=== PATIENT | female | born 1945 | race Caucasian/White ===

== ENCOUNTER → 2020-08-05 13:00 | Outpatient (BNVA) | payer MEDICARE, OTHER, SELFPAY | PROVIDERS: PCP Internal Medicine; Referring Provider Internal Medicine; Visit Provider Student in an Organized Health Care Education/Training Program | DX: M06.00 Rheumatoid arthritis without rheumatoid factor, unspecified site (principal); M17.0 Bilateral primary osteoarthritis of knee; D75.89 Other specified diseases of blood and blood-forming organs; Z79.52 Long term (current) use of systemic steroids; Z79.899 Other long term (current) drug therapy | CPT/HCPCS: 20610; 99212 ==

== ENCOUNTER 2020-12-14 15:15 | Outpatient (REF) | payer MEDICARE, OTHER, SELFPAY ==
[2020-12-14 16:34] LABS: MANUAL DIFF FLAG NO
[2020-12-14 16:37] LABS: Basophils Absolute Auto 0.1 X10*3/uL (0.0-0.2); Basophils Percent Auto 0.8 % (0-2); Eosinophils Absolute Auto 0.1 X10*3/uL (0.0-0.4); Hematocrit 41.5 % (37-47); Hemoglobin 13.7 g/dl (12.0-16.0); Imm Gran Abs Auto 0.03 X10*3/uL (0.00-0.03); Imm Gran Pct Auto 0.3 % (0.0-0.4); Lymphocytes Absolute Auto 1.5 X10*3/uL (1.2-4.9); Lymphocytes Percent Auto 15.4 % (20-40); Mean Corpuscular Hemoglobin 34.9 pg (27.0-33.0); Mean Corpuscular Volume 105.6 fL (80-98); Mean Platelet Volume 10.4 fL (9.4-12.3); Monocytes Absolute Auto 0.8 X10*3/uL (0.1-1.2); Neutrophils Absolute Auto 7.1 X10*3/uL (2.0-8.3); Neutrophils Percent Auto 74.5 % (45-73); Platelet Count 220 X10*3/uL (160-400); Red Blood Count 3.93 X10*6/uL (4.20-5.50); Red Cell Distribution Width 12.4 % (11.0-16.0); White Blood Count 9.6 X10*3/uL (4.8-10.8)
[2020-12-14 17:24] LABS: Alanine Aminotransferase 32 U/L (0-31); Alkaline Phosphatase 77 U/L (39-117); Anion Gap 15 (12-20); Aspartate Amino Transferase 27 U/L (5-31); Bilirubin Total 0.4 mg/dL (0.0-1.0); Blood Urea Nitrogen 21 mg/dL (9-16); C Reactive Protein 0.32 mg/dL (< or = 0.50); Calcium 9.2 mg/dL (8.4-10.2); Carbon Dioxide 25 mmol/L (22-29); Chloride 104 mmol/L (96-108); Estimated Glomerular Filt Rate > 60; Glucose Random 83 mg/dL (60-115); Potassium 4.3 mmol/L (3.3-5.1); Sodium 140 mmol/L (135-145); Total Protein 6.4 g/dL (6.5-8.0)
[2020-12-14 17:36] LABS: Erythrocyte Sedimentation Rate 12 MM/HR (0-20)
== END 2020-12-14 15:16 | disposition home or self-care (01) ==
LOC: HO.LAB 15:15
PROVIDERS: PCP Internal Medicine; Referring Provider Internal Medicine; Visit Provider Student in an Organized Health Care Education/Training Program
DX: M06.00 Rheumatoid arthritis without rheumatoid factor, unspecified site (principal); D75.89 Other specified diseases of blood and blood-forming organs; M17.0 Bilateral primary osteoarthritis of knee; Z79.52 Long term (current) use of systemic steroids; Z79.899 Other long term (current) drug therapy
CPT/HCPCS: 36415; 80053; 85025; 85652; 86140; 99212

== ENCOUNTER → 2021-04-18 14:11 | Outpatient (BNVA) | payer MEDICARE, OTHER, SELFPAY | PROVIDERS: PCP Internal Medicine; Visit Provider Student in an Organized Health Care Education/Training Program | DX: M06.00 Rheumatoid arthritis without rheumatoid factor, unspecified site (principal); M17.0 Bilateral primary osteoarthritis of knee; D75.89 Other specified diseases of blood and blood-forming organs; Z79.899 Other long term (current) drug therapy | CPT/HCPCS: 20610; 99212 ==

== ENCOUNTER 2021-04-20 09:44 | Outpatient (REF) | payer MEDICARE, OTHER, SELFPAY ==
[2021-04-20 10:51] LABS: MANUAL DIFF FLAG NO
[2021-04-20 11:07] LABS: Basophils Percent Auto 0.4 % (0-2); Eosinophils Percent Auto 0.1 % (0-4); Hematocrit 39.9 % (37-47); Hemoglobin 13.1 g/dl (12.0-16.0); Imm Gran Abs Auto 0.05 X10*3/uL (0.00-0.03); Imm Gran Pct Auto 0.5 % (0.0-0.4); Lymphocytes Absolute Auto 0.8 X10*3/uL (1.2-4.9); Mean Corpuscular HGB Conc 32.8 g/dl (31.0-35.0); Mean Corpuscular Hemoglobin 34.7 pg (27.0-33.0); Mean Corpuscular Volume 105.8 fL (80-98); Mean Platelet Volume 10.3 fL (9.4-12.3); Monocytes Absolute Auto 0.7 X10*3/uL (0.1-1.2); Monocytes Percent Auto 7.6 % (2-11); Neutrophils Absolute Auto 7.9 X10*3/uL (2.0-8.3); Neutrophils Percent Auto 83.4 % (45-73); Platelet Count 247 X10*3/uL (160-400); Red Blood Count 3.77 X10*6/uL (4.20-5.50); Red Cell Distribution Width 13.4 % (11.0-16.0); White Blood Count 9.5 X10*3/uL (4.8-10.8)
[2021-04-20 11:30] LABS: Alanine Aminotransferase 33 U/L (0-31); Albumin Level 3.7 g/dL (3.5-5.0); Alkaline Phosphatase 66 U/L (39-117); Anion Gap 13 (12-20); Aspartate Amino Transferase 22 U/L (5-31); Bilirubin Total 0.4 mg/dL (0.0-1.0); Blood Urea Nitrogen 23 mg/dL (9-16); C Reactive Protein 0.09 mg/dL (< or = 0.50); Calcium 9.3 mg/dL (8.4-10.2); Carbon Dioxide 25 mmol/L (22-29); Chloride 107 mmol/L (96-108); Estimated Glomerular Filt Rate > 60; Glucose Random 86 mg/dL (60-115); Potassium 4.8 mmol/L (3.3-5.1); Sodium 140 mmol/L (135-145); Total Protein 6.1 g/dL (6.5-8.0)
[2021-04-20 12:13] LABS: Erythrocyte Sedimentation Rate 10 MM/HR (0-20)
== END 2021-04-20 09:45 | disposition home or self-care (01) ==
LOC: HO.LAB 09:44
PROVIDERS: PCP Internal Medicine; Visit Provider Student in an Organized Health Care Education/Training Program
DX: M06.00 Rheumatoid arthritis without rheumatoid factor, unspecified site (principal)
CPT/HCPCS: 36415; 80053; 85025; 85652; 86140

== ENCOUNTER 2021-08-07 12:22 | Outpatient (REF) | payer MEDICARE, OTHER, SELFPAY ==
[2021-08-07 12:49] LABS: MANUAL DIFF FLAG NO
[2021-08-07 13:24] LABS: Basophils Absolute Auto 0.1 X10*3/uL (0.0-0.2); Basophils Percent Auto 0.9 % (0-2); Eosinophils Absolute Auto 0.1 X10*3/uL (0.0-0.4); Eosinophils Percent Auto 0.6 % (0-4); Hemoglobin 13.3 g/dl (12.0-16.0); Imm Gran Abs Auto 0.04 X10*3/uL (0.00-0.03); Imm Gran Pct Auto 0.5 % (0.0-0.4); Lymphocytes Absolute Auto 1.1 X10*3/uL (1.2-4.9); Lymphocytes Percent Auto 12.9 % (20-40); Mean Corpuscular HGB Conc 32.4 g/dl (31.0-35.0); Mean Corpuscular Hemoglobin 35.2 pg (27.0-33.0); Mean Corpuscular Volume 108.5 fL (80.0-98.0); Mean Platelet Volume 10.2 fL (9.4-12.3); Monocytes Absolute Auto 0.6 X10*3/uL (0.1-1.2); Monocytes Percent Auto 7.4 % (2-11); Neutrophils Absolute Auto 6.7 x10*3/uL (2.0-8.3); Neutrophils Percent Auto 77.7 % (45-73); Platelet Count 244 X10*3/uL (160-400); Red Blood Count 3.78 X10*6/uL (4.20-5.50); Red Cell Distribution Width 12.9 % (11.0-16.0); White Blood Count 8.7 X10*3/uL (4.8-10.8)
[2021-08-07 13:47] LABS: Alanine Aminotransferase 34 U/L (0-31); Albumin Level 3.8 g/dL (3.5-5.0); Alkaline Phosphatase 68 U/L (39-117); Anion Gap 11 (12-20); Aspartate Amino Transferase 27 U/L (5-31); Bilirubin Total 0.3 mg/dL (0.0-1.0); Blood Urea Nitrogen 22 mg/dL (9-16); C Reactive Protein 0.13 mg/dL (< or = 0.50); Calcium 9.9 mg/dL (8.4-10.2); Carbon Dioxide 30 mmol/L (22-29); Chloride 106 mmol/L (96-108); Estimated Glomerular Filt Rate > 60; Glucose Random 95 mg/dL (60-115); Potassium 4.9 mmol/L (3.3-5.1); Sodium 142 mmol/L (135-145); Total Protein 6.2 g/dL (6.5-8.0)
[2021-08-07 14:28] LABS: Erythrocyte Sedimentation Rate 13 MM/HR (0-20)
== END 2021-08-07 12:23 | disposition home or self-care (01) ==
LOC: HO.LAB 12:22
PROVIDERS: PCP Internal Medicine; Visit Provider Nurse Practitioner Family
DX: M06.00 Rheumatoid arthritis without rheumatoid factor, unspecified site (principal)
CPT/HCPCS: 36415; 80053; 85025; 85652; 86140

== ENCOUNTER 2021-08-31 12:47 | Outpatient (REF) | payer MEDICARE, OTHER, SELFPAY ==
[2021-08-31 13:59] LABS: MANUAL DIFF FLAG NO
[2021-08-31 14:04] LABS: Basophils Absolute Auto 0.1 X10*3/uL (0.0-0.2); Basophils Percent Auto 1.1 % (0-2); Eosinophils Absolute Auto 0.1 X10*3/uL (0.0-0.4); Hematocrit 40.7 % (37.0-47.0); Hemoglobin 13.4 g/dl (12.0-16.0); Imm Gran Abs Auto 0.03 X10*3/uL (0.00-0.03); Imm Gran Pct Auto 0.4 % (0.0-0.4); Lymphocytes Absolute Auto 1.3 X10*3/uL (1.2-4.9); Lymphocytes Percent Auto 15.4 % (20-40); Mean Corpuscular HGB Conc 32.9 g/dl (31.0-35.0); Mean Corpuscular Hemoglobin 35.2 pg (27.0-33.0); Mean Corpuscular Volume 106.8 fL (80.0-98.0); Mean Platelet Volume 10.4 fL (9.4-12.3); Monocytes Absolute Auto 0.7 X10*3/uL (0.1-1.2); Monocytes Percent Auto 7.9 % (2-11); Neutrophils Absolute Auto 6.1 x10*3/uL (2.0-8.3); Neutrophils Percent Auto 74.2 % (45-73); Platelet Count 227 X10*3/uL (160-400); Red Blood Count 3.81 X10*6/uL (4.20-5.50); Red Cell Distribution Width 12.4 % (11.0-16.0); White Blood Count 8.3 X10*3/uL (4.8-10.8)
[2021-08-31 14:28] LABS: Alanine Aminotransferase 23 U/L (0-31); Albumin Level 3.7 g/dL (3.5-5.0); Alkaline Phosphatase 66 U/L (39-117); Anion Gap 11 (12-20); Aspartate Amino Transferase 25 U/L (5-31); Bilirubin Total 0.4 mg/dL (0.0-1.0); Blood Urea Nitrogen 26 mg/dL (9-16); C Reactive Protein 0.26 mg/dL (< or = 0.50); Calcium 9.4 mg/dL (8.4-10.2); Carbon Dioxide 29 mmol/L (22-29); Chloride 105 mmol/L (96-108); Estimated Glomerular Filt Rate > 60; Glucose Random 99 mg/dL (60-115); Potassium 4.5 mmol/L (3.3-5.1); Sodium 140 mmol/L (135-145)
[2021-08-31 15:00] LABS: Erythrocyte Sedimentation Rate 16 MM/HR (0-20)
== END 2021-08-31 12:48 | disposition home or self-care (01) ==
LOC: HO.WFDLDS 12:47
PROVIDERS: Visit Provider Nurse Practitioner Family
DX: M06.00 Rheumatoid arthritis without rheumatoid factor, unspecified site (principal)
CPT/HCPCS: 36415; 80053; 85025; 85652; 86140

== ENCOUNTER → 2021-09-01 10:29 | Outpatient (BNVA) | payer MEDICARE, OTHER, SELFPAY | PROVIDERS: PCP Internal Medicine; Visit Provider Nurse Practitioner Family | DX: M06.00 Rheumatoid arthritis without rheumatoid factor, unspecified site (principal); D75.89 Other specified diseases of blood and blood-forming organs; Z79.82 Long term (current) use of aspirin | CPT/HCPCS: 99212 ==

== ENCOUNTER 2023-05-09 13:29 | Outpatient (AMB) | payer MEDICARE, OTHER, SELFPAY ==
[2023-05-09 13:45] VITALS: BP 122/64; PULSE 72; O2SAT 97; BMI 25.6
--- NOTE | 2023-05-09 13:45 | MHC.OFFVIS ---
Intake Vital Signs 05/09/23 13:45 Height 5 ft 4.5 in Weight 151 lb 10.848 oz BMI 25.6 BP 122/64 Blood Pressure Location Rt brachial Position Sitting Pulse 72 Pulse Source Pulse Oximeter Pulse Oximetry (%) 97 Intake Visit Reasons: RA Intake Note: Pt seen today for RA follow up. Previously seen [facility] Dr Sal she states they told her she does not have RA and discontinued MTX; follows with [facility] for knee OA. 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 She was last seen by Estrellita Velázquez 09/05. She was then followed by Dr. Mendoza at the [facility]. Methotrexate was discontinued and hydroxychloroquine was continued. Patient also mentions that she would get prednisone tapers. She also has been following up with due in and Orthopedics for her bilateral knee osteoarthritis. She gets steroid injections every 3 months and gel injections every 6 months. She states that over the last few months she has been having worsening pain and stiffness in her fingers, morning stiffness lasting 1 hour. Associated with swelling of her 2nd and 3rd MCPs bilaterally. She states that she has had a reddish patch on the left side of her neck that seems to get worse when her arthritis is worse. [facility] Medical History (Updated 05/09/23 @ 15:59 by Amy Gómez MD) Calcium pyrophosphate deposition disease (CPPD) Macrocytosis Primary osteoarthritis of left knee Primary osteoarthritis of right knee Surgical History History of heart artery stent Social History Alcohol intake: never Patient Tobacco Use Status: Former Tobacco user Review of Systems ENT Reports neck pain Musc Reports arthralgias, Reports joint swelling, Reports neck pain and Reports stiffness Physical Exam Vital Signs: Last Vital Signs Pulse 72 05/09/23 13:45 BP 122/64 05/09/23 13:45 Pulse Ox 97 05/09/23 13:45 BMI result Body Mass Index 25.6 Const General: cooperative, healthy appearing and comfortable Nutritional Appearance: average body habitus Orientation/consciousness: patient oriented x3 Limitations: ambulation with cane HEENT Head: Yes normocephalic and Yes atraumatic Mouth: moist mucous membranes Resp Effort & Inspection: normal respiratory effort and able to speak in complete sentences Auscultation: clear to auscultation bilaterally Cardio Rate: regular rate Skin General skin exam: no rashes or lesions noted Neuro General: patient oriented x3 Extrem Other: Bilateral wrist pain with full flexion Left 2nd and 3rd MCP swelling and tenderness Left 2nd and 3rd PIP swelling and tenderness Right 2nd and 3rd MCP swelling and tenderness Right 2nd and 3rd PIP swelling and tenderness Mild flexion deformity of right hand PIP, with mild extension of the DIPs. Normal range of motion of both elbows and shoulders without pain Bilateral knee warmth Assessment & Plan Assessment & Plan (1) Seropositive rheumatoid arthritis: Comment: +CCP (-ve on repeat) -ve RF dx 2016 on MTX & HCQ since 2015 MTX DC 2021 Code(s): M05.9 - Rheumatoid arthritis with rheumatoid factor, unspecified Plan: This is a 77-year-old female with a past medical history of rheumatoid arthritis who presents for follow-up. She was last seen by Estrellita Velázquez 09/05 and then was following up with Dr. Sal at the [facility]. She was taken off the methotrexate. Over the last few months patient has been having worsening pain stiffness and swelling of her hands and fingers associated with 1 hour of morning stiffness. She had been on methotrexate since her diagnosis in 2015 as well as hydroxychloroquine. On exam today patient has multiple swollen tender joints, will need to restart methotrexate. Check labs 1st and will plan to start methotrexate 17.5 mg weekly and folic acid 1 mg daily. 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 Will check a bone density scan (3) custodial methotrexate user: Code(s): Z79.899 - Other [place] [facility] (current) drug therapy Plan: Side effects of methotrexate were discussed with the patient in detail including oral ulcers, elevated LFTs, abdominal discomfort, and possible pancytopenia is. Will monitor patient for side effects with frequent lab work. Advised patient to take folic acid daily to prevent complications of methotrexate. (4) Abnormal ANCA test: Code(s): R76.8 - Other specified abnormal immunological findings in serum Plan: Labs from 05/03 she show a positive p-ANCA with no mention of MPO positivity. Labs also showed positive ASMA & RJA 1:320 homogeneous. I do not see any signs of vasculitis upon evaluation today, recent LFTs were unremarkable. Will repeat ANCA testing in the future Plan I spent 65 minutes reviewing patient's chart, evaluating patient, ordering diagnostic workup, counseling patient and documenting in the chart Orders: Orders Complete Blood Count Auto Diff Today M06.00 - Rheumatoid arthritis without rheumatoid factor, unspecified site Comprehensive Met. Panel Today M06.00 - Rheumatoid arthritis without rheumatoid factor, unspecified site C Reactive Protein Today M06.00 - Rheumatoid arthritis without rheumatoid factor, unspecified site Erythrocyte Sedimentation Rate Today M06.00 - Rheumatoid arthritis without rheumatoid factor, unspecified site Hepatitis A,B,C Profile Today Z11.59 - Encounter for screening for other viral diseases T Spot TB Today Z11.7 - Encounter for testing for latent tuberculosis infection XR hand wrist LT Today M06.00 - Rheumatoid arthritis without rheumatoid factor, unspecified site XR hand wrist RT Today M06.00 - Rheumatoid arthritis without rheumatoid factor, unspecified site XR DEXA axial skeleton Today Z79.52 - custodial (current) use of systemic steroids Coding Level of Care Code Est Pt Level 5 (21113) Diagnoses Seropositive rheumatoid arthritis M05.9 Long-term corticosteroid use Z79.52 custodial methotrexate user Z79.899 Abnormal ANCA test R76.8
== END 2023-05-09 14:23 | disposition home or self-care (01) ==
PROVIDERS: PCP Internal Medicine; Visit Provider Student in an Organized Health Care Education/Training Program
DX: M05.741 Rheumatoid arthritis with rheumatoid factor of right hand without organ or systems involvement (principal); M05.742 Rheumatoid arthritis with rheumatoid factor of left hand without organ or systems involvement; Z79.52 Long term (current) use of systemic steroids; Z79.899 Other long term (current) drug therapy; R76.8 Other specified abnormal immunological findings in serum
CPT/HCPCS: 99215

== ENCOUNTER 2023-05-09 13:29 | Outpatient (REF) | payer MEDICARE, OTHER, SELFPAY ==
--- NOTE | ~2023-05-09 | XR_ITS ---
EXAMINATION: XR HAND/WRIST, RIGHT XR HAND/WRIST, LEFT CLINICAL INFORMATION: Rheumatoid arthritis. COMPARISON: None available. TECHNIQUE: PA, lateral, and oblique views of the each hand and wrist, together with a dedicated navicular views. FINDINGS: RIGHT HAND/WRIST: There is bony demineralization. There is a neutral ulnar variance. There is mild osteoarthritic change of the interphalangeal joint of the thumb and of the fifth distal interphalangeal joint. There is mild osteoarthritic change of the second metacarpophalangeal joint. No fracture or dislocation is seen. There is no abnormal bone erosion. No focal soft tissue swelling, gas or foreign body is seen. LEFT HAND/WRIST: Bony alignment is normal. There is bony demineralization. No fracture. Alignment is anatomic. There is a mild ulnar minus variance. Joint spaces are maintained. A small periarticular calcification is seen adjacent to the interphalangeal joint of the thumb. No erosions. There is very mild chondrocalcinosis of the triangular ligament. XR/XR hand wrist LT IMPRESSION: RIGHT: 1. Mild osteoarthritic change is seen of the interphalangeal joint and of the fifth distal interphalangeal joint. 2. There is no abnormal bone erosion. LEFT: 1. No fracture or dislocation is seen. 2. There is very mild chondrocalcinosis of the triangular ligament, which can be associated with CPPD. 3. There is no abnormal bone erosion.
--- NOTE | ~2023-05-09 | XR_ITS ---
EXAMINATION: XR HAND/WRIST, RIGHT XR HAND/WRIST, LEFT CLINICAL INFORMATION: Rheumatoid arthritis. COMPARISON: None available. TECHNIQUE: PA, lateral, and oblique views of the each hand and wrist, together with a dedicated navicular views. FINDINGS: RIGHT HAND/WRIST: There is bony demineralization. There is a neutral ulnar variance. There is mild osteoarthritic change of the interphalangeal joint of the thumb and of the fifth distal interphalangeal joint. There is mild osteoarthritic change of the second metacarpophalangeal joint. No fracture or dislocation is seen. There is no abnormal bone erosion. No focal soft tissue swelling, gas or foreign body is seen. LEFT HAND/WRIST: Bony alignment is normal. There is bony demineralization. No fracture. Alignment is anatomic. There is a mild ulnar minus variance. Joint spaces are maintained. A small periarticular calcification is seen adjacent to the interphalangeal joint of the thumb. No erosions. There is very mild chondrocalcinosis of the triangular ligament. XR/XR hand wrist RT IMPRESSION: RIGHT: 1. Mild osteoarthritic change is seen of the interphalangeal joint and of the fifth distal interphalangeal joint. 2. There is no abnormal bone erosion. LEFT: 1. No fracture or dislocation is seen. 2. There is very mild chondrocalcinosis of the triangular ligament, which can be associated with CPPD. 3. There is no abnormal bone erosion.
[2023-05-09 14:51] LABS: MANUAL DIFF FLAG NO
[2023-05-09 15:37] LABS: Basophils Absolute Auto 0.1 X10*3/uL (0.0-0.2); Basophils Percent Auto 1.2 % (0-2); Eosinophils Absolute Auto 0.3 X10*3/uL (0.0-0.4); Eosinophils Percent Auto 3.9 % (0-4); Hematocrit 43.7 % (37.0-47.0); Hemoglobin 14.2 g/dl (12.0-16.0); Imm Gran Abs Auto 0.02 X10*3/uL (0.00-0.03); Imm Gran Pct Auto 0.2 % (0.0-0.4); Lymphocytes Absolute Auto 1.5 X10*3/uL (1.2-4.9); Lymphocytes Percent Auto 18.2 % (20-40); Mean Corpuscular HGB Conc 32.5 g/dl (31.0-35.0); Mean Corpuscular Hemoglobin 32.9 pg (27.0-33.0); Mean Corpuscular Volume 101.4 fL (80.0-98.0); Mean Platelet Volume 10.1 fL (9.4-12.3); Monocytes Absolute Auto 0.9 X10*3/uL (0.1-1.2); Monocytes Percent Auto 10.8 % (2-11); Neutrophils Absolute Auto 5.4 x10*3/uL (2.0-8.3); Neutrophils Percent Auto 65.7 % (45-73); Platelet Count 265 X10*3/uL (160-400); Red Blood Count 4.31 X10*6/uL (4.20-5.50); Red Cell Distribution Width 12.7 % (11.0-16.0); White Blood Count 8.3 X10*3/uL (4.8-10.8)
[2023-05-09 16:19] LABS: Alanine Aminotransferase 23 U/L (0-31); Alkaline Phosphatase 112 U/L (39-117); Anion Gap 13 (12-20); Aspartate Amino Transferase 30 U/L (5-31); Bilirubin Total 0.4 mg/dL (0.0-1.0); Blood Urea Nitrogen 21 mg/dL (9-16); Calcium 10.1 mg/dL (8.4-10.2); Carbon Dioxide 27 mmol/L (22-29); Chloride 105 mmol/L (96-108); Estimated Glomerular Filt Rate > 60; Glucose Random 87 mg/dL (60-115); Potassium 4.3 mmol/L (3.3-5.1); Sodium 141 mmol/L (135-145); Total Protein 7.2 g/dL (6.5-8.0)
[2023-05-09 16:44] LABS: Erythrocyte Sedimentation Rate 23 MM/HR (0-20)
[2023-05-10 04:05] LABS: HBS Num1 5.39 mIU/mL (0-7.99); HBc Num1 0.07 S/CO (0.00-0.79); HBsAGNum1 0.38 S/CO (0.00-0.99); Hepatitis A Antibody IgM 0.15 Index (0-0.79); Hepatitis B Core Antibody Nonreactive (Nonreactive); Hepatitis B Surface Antigen Negative (Negative); ~HepC Num1 0.06 S/CO (0.00-0.79); ~Hepatitis A Antibody IgM Nonreactive (Nonreactive); ~Hepatitis B Surface Antibody NONREACTIVE (Nonreactive); ~Hepatitis C Antibody Nonreactive (Nonreactive)
[2023-05-12 05:04] LABS: TS Negative Control Passed; TS Panel A 0; TS Panel B 0; TS Positive Control Passed; TSpotTB Negative (Negative)
== END 2023-05-09 13:30 | disposition home or self-care (01) ==
LOC: HO.XRAY 13:29
PROVIDERS: PCP Internal Medicine; Visit Provider Student in an Organized Health Care Education/Training Program
DX: M05.9 Rheumatoid arthritis with rheumatoid factor, unspecified (principal); Z79.52 Long term (current) use of systemic steroids; Z79.899 Other long term (current) drug therapy; R76.8 Other specified abnormal immunological findings in serum; Z11.59 Encounter for screening for other viral diseases; Z72.89 Other problems related to lifestyle
CPT/HCPCS: 36415; 73110; 73130; 80053; 85025; 85652; 86140; 86481; 86704; 86706; 86709; 86803; 87340; 99212

== ENCOUNTER 2023-05-15 14:14 | Outpatient (REF) | payer MEDICARE, OTHER, SELFPAY ==
--- NOTE | ~2023-05-15 | MM_ITS ---
EXAMINATION: BONE DENSITOMETRY CLINICAL INDICATION: Long-term (current) use of systemic steroids. COMPARISON: This is the patient's baseline examination. TECHNIQUE: Using a Digital Lab DXA System (software version: 13.1) manufactured by [employer], dual-energy x-ray absorptiometry was performed of the lumbar spine and left hip. The images are of good technical quality. Summary results are attached. FINDINGS: LEFT FEMUR, NECK: BMD 0.830 g/cm2, Z-score 0.4, T-score -1.5, osteopenia. LEFT FEMUR, TOTAL: BMD 0.903 g/cm2, Z-score 0.9, T-score -0.8, normal. AP SPINE L1-L4: BMD 1.051 g/cm2, Z-score 0.6, T-score -1.1, osteopenia. IDENTIFIED RISK FACTORS: Menopause, hysterectomy, glucocorticoids (chronic), rheumatoid arthritis. HISTORY OF FRACTURE: None listed. MEDICATIONS: Vitamin D. MM/XR DEXA axial skeleton IMPRESSION: 1. DIAGNOSIS: Osteopenia based on the lowest T-score value of -1.5 in the femoral neck applying World Health Organization criteria. 2. 10-YEAR FRACTURE RISK PREDICTION, FRAX: Major osteoporotic fracture (clinical spine, forearm, hip or shoulder) 23.0%. Hip fracture 6.0%. 3. Treatment Recommendations: NOF guidelines recommend consideration for treatment in postmenopausal women and men age 50 and older presenting with the following: -A hip or vertebral (clinical or morphometric) fracture. -T-score less than or equal to -2.5 at the femoral neck or spine after appropriate evaluation to exclude secondary causes. -Low bone mass at the hip or spine and a 10-year fracture probability by FRAX of greater than or equal to 3% for hip fracture or greater than or equal to 20% for major osteoporotic fracture based on the [place] adapted WHO algorithm. 4. Other Recommendations: All treatment decisions require clinical judgment and consideration of individual patient factors, including patient preferences, comorbidities, previous drug use, risk factors not captured in the FRAX model (e.g. frailty, falls, vitamin D deficiency, increased bone turnover, interval significant decline in bone density) and possible under or overestimation of fracture risk by FRAX. Additional medical evaluation for secondary cause of low bone mineral density may be appropriate. FUTURE SCAN RECOMMENDATION: People with diagnosed cases of osteoporosis or at high risk for fracture should have regular bone mineral density tests. For patients eligible for Medicare, routine testing is allowed once every 2 years. The testing frequency can be increased to one year for patients who have rapidly progressing disease, those who are receiving or discontinuing medical therapy to restore bone mass, or have additional risk factors.
== END 2023-05-15 14:15 | disposition home or self-care (01) ==
LOC: HO.MAMMO 14:14
PROVIDERS: PCP Internal Medicine; Visit Provider Student in an Organized Health Care Education/Training Program
DX: Z13.820 Encounter for screening for osteoporosis (principal); Z79.52 Long term (current) use of systemic steroids; Z78.0 Asymptomatic menopausal state
CPT/HCPCS: 77080

== ENCOUNTER → 2023-05-15 14:30 | Outpatient (BNV) | payer MEDICARE, OTHER, SELFPAY | PROVIDERS: PCP Internal Medicine; Visit Provider Radiology Diagnostic Radiology | DX: M85.89 Other specified disorders of bone density and structure, multiple sites (principal) | CPT/HCPCS: 77080 ==

== ENCOUNTER 2023-08-15 15:26 | Outpatient (AMB) | payer MEDICARE, OTHER, SELFPAY ==
[2023-08-15 15:39] VITALS: BP 108/62; PULSE 68; TEMP 36.2; O2SAT 98; BMI 25.7
--- NOTE | 2023-08-15 15:39 | MHC.OFFVIS ---
Intake Vital Signs 08/15/23 15:39 Height 5 ft 4.5 in Weight 151 lb 14.376 oz BMI 25.7 BP 108/62 Blood Pressure Location Rt brachial Position Sitting Pulse 68 Pulse Source Pulse Oximeter Temp 97.1 F Temp Source Skin Pulse Oximetry (%) 98 Oxygen Delivery Method Room Air Intake Visit Reasons: RA Intake Note: Pt last seen 05/09/23, presents today for follow up and test results. 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 Required: No Accompanied by: Self / Same As Patient Allergies No Known Allergies Allergy (Verified 08/15/23 15:42) Medication List - Last Reconciled 08/15/23 by Amy Gómez MD aspirin (Adult Low Dose Aspirin) 81 mg PO DAILY atorvastatin 80 mg PO DAILY folic acid 1 mg PO DAILY furosemide 20 mg PO DAILY PRN hydroxychloroquine (Plaquenil) 200 mg PO BID levothyroxine 112 mcg PO DAILY losartan 12.5 mg PO DAILY methotrexate sodium 17.5 mg (7 x 2.5 mg) PO QWEEK metoprolol succinate ER 50 mg PO DAILY spironolactone 25 mg PO DAILY HPI HPI Comments History of Present Illness Details 77-year-old female with seropositive RA (+CCP)returns for follow-up. Doing much better overall since methotrexate was restarted last visit. She only has minimal hand pain and stiffness. She continues to have bilateral knee pain and deformity. Continues to get bilateral knee steroid injections every 3 months and gel injections every 6 months. She stated that she had an injection 3 days ago which was helpful. Mentions that she gets intermittent locking and unlocking of her fingers, usually worse in the morning. Not painful or significantly symptomatic. Initial history: This is a 77-year-old female with a past medical history of seronegative RA presents for follow-up. She was last seen by Estrellita Velázquez 09/05. She was then followed by Dr. Mendoza at the [facility]. Methotrexate was discontinued and hydroxychloroquine was continued. Patient also mentions that she would get prednisone tapers. She also has been following up with due in and Orthopedics for her bilateral knee osteoarthritis. She gets steroid injections every 3 months and gel injections every 6 months. She states that over the last few months she has been having worsening pain and stiffness in her fingers, morning stiffness lasting 1 hour. Associated with swelling of her 2nd and 3rd MCPs bilaterally. She states that she has had a reddish patch on the left side of her neck that seems to get worse when her arthritis is worse. [facility] Medical History Bladder cancer Calcium pyrophosphate deposition disease (CPPD) Primary osteoarthritis of left knee Primary osteoarthritis of right knee Macrocytosis Surgical History History of heart artery stent Social History Alcohol intake: never Patient Tobacco Use Status: Former Tobacco user Review of Systems [facility] Reports arthralgias and Reports stiffness Physical Exam Vital Signs: Last Vital Signs Temp 97.1 F 08/15/23 15:39 Pulse 68 08/15/23 15:39 BP 108/62 08/15/23 15:39 Pulse Ox 98 08/15/23 15:39 Oxygen Delivery Method Room Air 08/15/23 15:39 BMI result Body Mass Index 25.7 Const General: cooperative, healthy appearing and comfortable Nutritional Appearance: average body habitus Orientation/consciousness: patient oriented x3 Limitations: ambulation with cane HEENT Head: Yes normocephalic and Yes atraumatic Mouth: moist mucous membranes Resp Effort & Inspection: normal respiratory effort and able to speak in complete sentences Auscultation: clear to auscultation bilaterally Cardio Rate: regular rate Skin General skin exam: no rashes or lesions noted Neuro General: patient oriented x3 Extrem Other: Bilateral wrist pain with full flexion Left 2nd and 3rd PIP tenderness without swelling Right 2nd PIP tenderness Mild flexion deformity of right hand PIP, with mild extension of the DIPs. Normal range of motion of both elbows and shoulders without pain Left knee warmth, bilateral genu valgus Results Reviewed Results Reviewed: Labs 10/2021? CCP/RF negative Hepatitis panel negative QuantiFERON gold negative ESR 11? CRP normal Labs 2015 CCP 34 (weak positive) RAJ 1-320 homogeneous? ASMA? 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 DEXA scan shows osteopenia but with a high FRAX score. Will need to start antiresorptives. Discussed risks and benefits of alendronate. Patient agreed to proceed. Will start alendronate 70 mg once weekly Repeat DEXA in 2024 (3) nursing home methotrexate user: Code(s): Z79.899 - Other assisted (current) drug therapy Plan: Monitor safety lab (4) Abnormal ANCA test: Code(s): R76.8 - Other specified abnormal immunological findings in serum Plan: Labs from 05/03 she show a positive p-ANCA with no mention of MPO positivity. Labs also showed positive ASMA & RAJ 1:320 homogeneous. I do not see any signs of vasculitis upon evaluation today, recent LFTs were unremarkable. Will repeat testing today (5) Immunization counseling: Code(s): Z71.85 - Encounter for immunization safety counseling Plan: Patient is up-to-date on flu vaccine and new COVID booster (6) Long-term use of hydroxychloroquine: Code(s): Z79.899 - Other manager long term care (current) drug therapy Plan: Patient is aware of risk of retinopathy associated with hydroxychloroquine. She gets regular eye exams. She states that she is due for an eye exam. 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 Panel 3 Months Z79.899 - Other assisted (current) drug therapy Erythrocyte Sedimentation Rate 3 Months Z79.899 - Other assisted (current) drug therapy Complete Blood Count Auto Diff Today M05.9 - Rheumatoid arthritis with rheumatoid factor, unspecified, Z79.899 - Other assisted (current) drug therapy Comprehensive Met. Panel Today M05.9 - Rheumatoid arthritis with rheumatoid factor, unspecified, Z79.899 - Other manager long term care (current) drug therapy C Reactive Protein Today M05.9 - Rheumatoid arthritis with rheumatoid factor, unspecified, Z79.899 - Other assisted (current) drug therapy ANCA Vasculitides Today R76.8 - Other specified abnormal immunological findings in serum Smooth Muscle Antibody Today R74.01 - Elevation of levels of liver transaminase levels C Reactive Protein 3 Months Z79.899 - Other assisted (current) drug therapy Erythrocyte Sedimentation Rate Today M05.9 - Rheumatoid arthritis with rheumatoid factor, unspecified, Z79.899 - Other manager long term care (current) drug therapy Medications: New alendronate 70 mg PO QWEEK 12 tabs 1RF alendronate Take 1 tab once weekly, 1st thing in the morning, on an empty stomach, with a large glass of water, at least 6 oz and stay upright for 30 minutes 70 mg PO QWEEK 12 tabs 1RF Refilled methotrexate sodium 17.5 mg (7 x 2.5 mg) PO QWEEK 84 tabs 1RF folic acid 1 mg PO DAILY 90 tabs 1RF Coding Level of Care Code Est Pt Level 5 (12065) Diagnoses Seropositive rheumatoid arthritis M05.9 Long-term corticosteroid use Z79.52 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
== END 2023-08-15 16:10 | disposition home or self-care (01) ==
PROVIDERS: PCP Internal Medicine; Visit Provider Student in an Organized Health Care Education/Training Program
DX: M05.79 Rheumatoid arthritis with rheumatoid factor of multiple sites without organ or systems involvement (principal); Z79.52 Long term (current) use of systemic steroids; Z79.899 Other long term (current) drug therapy; R76.8 Other specified abnormal immunological findings in serum; Z71.85 Encounter for immunization safety counseling
CPT/HCPCS: 99215

== ENCOUNTER → 2023-08-15 15:26 | Outpatient (BNVA) | payer MEDICARE, OTHER, SELFPAY | PROVIDERS: PCP Internal Medicine; Visit Provider Student in an Organized Health Care Education/Training Program | DX: M05.9 Rheumatoid arthritis with rheumatoid factor, unspecified (principal); R76.8 Other specified abnormal immunological findings in serum; Z79.52 Long term (current) use of systemic steroids; Z79.899 Other long term (current) drug therapy; Z71.85 Encounter for immunization safety counseling | CPT/HCPCS: 99212 ==

== ENCOUNTER 2023-12-16 09:20 | Outpatient (AMB) | payer MEDICARE, OTHER, SELFPAY ==
--- NOTE | 2023-12-16 09:25 | A.OFFVIS_ITS ---
Intake Vital Signs 12/16/23 09:26 Height 5 ft 4.5 in Weight 156 lb 1.396 oz BMI 26.4 BP 114/62 Blood Pressure Location Rt brachial Position Sitting Pulse 74 Pulse Source Pulse Oximeter Pulse Oximetry (%) 95 Oxygen Delivery Method Room Air Intake Visit Reasons: RA/cm Intake Note: Patient last seen 08/15/24 presents today for follow up and test results. States she had covid and cancer is back Needs refills Commercial Marketing Specialist Required: No Accompanied by: Self / Same As Patient Allergies No Known Allergies Allergy (Verified 12/16/23 09:28) Medication List - Last Reconciled 12/16/23 by Amy Gómez MD alendronate 70 mg PO QWEEK aspirin (Adult Low Dose Aspirin) 81 mg PO DAILY atorvastatin 80 mg PO DAILY folic acid 1 mg PO DAILY furosemide 20 mg PO DAILY PRN hydroxychloroquine 200 mg PO BID levothyroxine 112 mcg PO DAILY losartan 12.5 mg PO DAILY methotrexate sodium 17.5 mg (7 x 2.5 mg) PO QWEEK metoprolol succinate ER 50 mg PO DAILY spironolactone 25 mg PO DAILY HPI HPI Comments History of Present Illness Details 78-year-old female with seropositive RA (+CCP)returns for follow-up. She remains on hydroxychloroquine 200 mg Twice daily, methotrexate 17.5 mg weekly and folic acid 1 mg daily. She states that she started having a flare-up towards the end of October with hand pain swelling and stiffness, she could not put her rings on. Had blood work done which was unremarkable, soon after she r eceived her q.3 months bilateral knee steroid injections which were quite helpful for her hands but did not help her knees much. Particularly the left knee. Bilateral knee x-rays were done and she was told both knees need to be replaced. She is planning to have the left knee replaced next month. Followed by the right knee a few months after. With regards to her bladder cancer, she stated that she recently had another resection, she states that the CT scan did not show a metastasis, she is waiting for the pathology. She states that if it is noninvasive, she might get a recently approved FDA immunotherapy, if it is invasive, she might need a cystectomy versus chemotherapy. Initial history: This is a 77-year-old female with a past medical history of seronegative RA presents for follow-up. She was last seen by Estrellita Velázquez 09/05. She was then followed by Dr. Mendoza at [facility]. Methotrexate was discontinued and hydroxychloroquine was continued. Patient ada lskenneth mentions that she would get prednisone tapers. She also has been following up with due in and Orthopedics for her bilateral knee osteoarthritis. She gets steroid injections every 3 months and gel injections every 6 months. She states that over the last few months she has been having worsening pain and stiffness in her fingers, morning stiffness lasting 1 hour. Associated with swelling of her 2nd and 3rd MCPs bilaterally. She states that she has had a reddish patch on the left side of her neck that seems to get worse when her arthritis is worse. [facility] Medical History Bladder cancer Calcium pyrophosphate deposition disease (CPPD) Primary osteoarthritis of left knee Primary osteoarthritis of right knee Macrocytosis Surgical History History of heart artery stent Social History Alcohol intake: never Patient Tobacco Use Status: Former Tobacco user Review of Systems [facility] [place] Reports arthralgias and Reports stiffness Physical Exam Vital Signs: BMI result Body Mass Index 26.4 Const General: cooperative, healthy appearing and comfortable Nutritional Appearance: average body habitus Orientation/consciousness: patient oriented x3 Limitations: ambulation with cane HEENT Head: Yes normocephalic and Yes atraumatic Mouth: moist mucous membranes Resp Effort & Inspection: normal respiratory effort and able to speak in complete sentences Auscultation: clear to auscultation bilaterally Cardio Rate: regular rate Skin Other: Small circular scaly rash on the outer aspect of the left side of her neck Neuro General: patient oriented x3 Extrem Other: No swelling or tenderness both hands, wrists and fingers Normal range of motion of both elbows and shoulders without pain Bilateral knee swelling and warmth bilateral genu valgus Results Reviewed Results Reviewed: Labs 10/2021? CCP/RF negative Hepatitis panel negative QuantiFERON gold negative ESR 11? CRP normal Labs 2015 CCP 34 (weak positive) RAJ 1-320 homogeneous? ASMA? 61 (strong positive) P-ANCA positive TPO/SSA/SSB/[place]/DRIVABILITY TECHNICIAN/Scl 70/Heather-1/histone/HLA B27 all negative Assessment & Plan Assessment & Plan (1) Seropositive rheumatoid arthritis: Comment: +CCP (-ve on repeat) -ve RF dx 2016 on MTX & HCQ since 2015 MTX DC 2021 causing flare, restarted 04/2023 effective Code(s): M05.9 - Rheumatoid arthritis with rheumatoid factor, unspecified Plan: This is a 78-year-old female with seropositive RA who returns for follow-up. She is in remission on methotrexate 17.5 mg weekly, folic acid 1 mg daily and hydroxychloroquine 200 mg Twice daily Reduce hydroxychloroquine to 400 mg a day x5 days a week and 200 mg a day x2 days a a week Continue methotrexate 17.5 mg weekly Continue folic acid 1 mg daily Start leucovorin 5 mg weekly due to macrocytosis Continue folic acid 1 mg daily Patient is planned for left knee replacement next month and right knee replacement a few months after. Recently had a cystoscopy and resection for bladder cancer, waiting for pathology to determine treatment, invasive versus noninvasive bladder cancer Labs before next visit in 4 months (2) Long-term corticosteroid use: Comment: Alendronate 07/2023 Code(s): Z79.52 - intermediate card tender (current) use of systemic steroids Plan: Patient received numerous steroid injections her lifetime currently she gets steroid injections for both knees every 3 months, she was also on prednisone in the past. DEXA scan shows osteopenia but with a high FRAX score. Continue with alendronate 70 mg once weekly Repeat DEXA in 2024 (3) intermediate card tender methotrexate user: Code(s): Z79.899 - Other shelter (current) drug therapy Plan: Monitor safety lab (4) Abnormal ANCA test: Code(s): R76.8 - Other specified abnormal immunological findings in serum Plan: Labs from 05/03 she show a positive p-ANCA with no mention of MPO positivity. Labs also showed positive ASMA & RAJ 1:320 homogeneous. I do not see any signs of vasculitis upon evaluation today, recent LFTs were unremarkable. (5) Long-term use of hydroxychloroquine: Code(s): Z79.899 - Other marine oil terminal superintendent (current) drug therapy Plan: Patient is aware of risk of retinopathy associated with hydroxychloroquine. She gets regular eye exams. She states that she is due for an eye exam. Advised patient to have her business process expert send me their most recent office note. She is due for an eye exam in March Plan I spent 45 minutes reviewing patient's chart, evaluating patient, ordering diagnostic workup, counseling patient and documenting in the chart Orders: Orders Complete Blood Count Auto Diff 4 Months M05.9 - Rheumatoid arthritis with rheumatoid factor, unspecified, Z79.899 - Other marine oil terminal superintendent (current) drug therapy Comprehensive Met. Panel 4 Months M05.9 - Rheumatoid arthritis with rheumatoid factor, unspecified, Z79.899 - Other marine oil terminal superintendent (current) drug therapy C Reactive Protein 4 Months M05.9 - Rheumatoid arthritis with rheumatoid factor, unspecified, Z79.899 - Other shelter (current) drug therapy Erythrocyte Sedimentation Rate 4 Months M05.9 - Rheumatoid arthritis with rheumatoid factor, unspecified, Z79.899 - Other marine oil terminal superintendent (current) drug therapy Medications: New leucovorin calcium Take the day after you take methotrexate 5 mg PO QWEEK 12 tabs 1RF Changed From hydroxychloroquine 200 mg PO BID 180 tabs 0RF To hydroxychloroquine Take 1 tab twice daily X days a week and 1 tab daily X2 2 days a week 180 tabs 1RF Refilled alendronate Take 1 tab once weekly, 1st thing in the morning, on an empty stomach, with a large glass of water, at least 6 oz and stay upright for 30 minutes 70 mg PO QWEEK 12 tabs 1RF folic acid 1 mg PO DAILY 90 tabs 1RF methotrexate sodium 17.5 mg (7 x 2.5 mg) PO QWEEK 84 tabs 1RF Coding Level of Care Code Est Pt Level 5 (63355) Diagnoses Seropositive rheumatoid arthritis M05.9 Long-term corticosteroid use Z79.52 intermediate card tender methotrexate user Z79.899 Abnormal ANCA test R76.8 Long-term use of hydroxychloroquine Z79.899
[2023-12-16 09:26] VITALS: BP 114/62; PULSE 74; O2SAT 95; BMI 26.4
== END 2023-12-16 09:49 | disposition home or self-care (01) ==
PROVIDERS: PCP Internal Medicine; Visit Provider Student in an Organized Health Care Education/Training Program
DX: M05.79 Rheumatoid arthritis with rheumatoid factor of multiple sites without organ or systems involvement (principal); Z79.52 Long term (current) use of systemic steroids; Z79.899 Other long term (current) drug therapy; R76.8 Other specified abnormal immunological findings in serum
CPT/HCPCS: 99214

== ENCOUNTER → 2023-12-16 09:20 | Outpatient (BNVA) | payer MEDICARE, OTHER, SELFPAY | PROVIDERS: PCP Internal Medicine; Visit Provider Student in an Organized Health Care Education/Training Program | DX: M05.9 Rheumatoid arthritis with rheumatoid factor, unspecified (principal); R76.8 Other specified abnormal immunological findings in serum; Z79.631 Long term (current) use of antimetabolite agent; Z79.52 Long term (current) use of systemic steroids; Z79.899 Other long term (current) drug therapy | CPT/HCPCS: 99212 ==

== ENCOUNTER 2024-04-15 10:17 | Outpatient (AMB) | payer MEDICARE, OTHER, SELFPAY ==
[2024-04-15 10:31] VITALS: BP 112/72; PULSE 74; O2SAT 97; BMI 24.7
--- NOTE | 2024-04-15 10:31 | A.OFFVIS_ITS ---
Vital Signs 04/15/24 10:31 Height 5 ft 4.5 in Weight 145 lb 15.136 oz BMI 24.7 BP 112/72 Blood Pressure Location Lt brachial Position Sitting Pulse 74 Pulse Source Pulse Oximeter Pulse Oximetry (%) 97 Oxygen Delivery Method Room Air Intake Visit Reasons: RA/cm Intake Note: Patient last seen on 02/05/24 present today for follow up and test results. Allergies No Known Allergies Allergy (Verified 04/15/24 10:33) Medication List - Last Reconciled 04/15/24 by Amy Gómez MD alendronate 70 mg PO QWEEK aspirin (Adult Low Dose Aspirin) 81 mg PO DAILY atorvastatin 80 mg PO DAILY folic acid 1 mg PO DAILY furosemide 20 mg PO DAILY PRN hydroxychloroquine Take 1 tab twice daily X days a week and 1 tab daily X2 2 days a week leucovorin calcium 5 mg PO QWEEK levothyroxine 112 mcg PO DAILY losartan 12.5 mg PO DAILY methotrexate sodium 17.5 mg (7 x 2.5 mg) PO QWEEK metoprolol succinate ER 50 mg PO DAILY spironolactone 25 mg PO DAILY HPI Comments Details: 78-year-old female with seropositive RA (+CCP)returns for follow-up. She remains on hydroxychloroquine 200 mg Twice daily, methotrexate 17.5 mg weekly, Leucovorin 5 mg weekly and folic acid 1 mg daily. She states that her RA is doing fairly well overall. Has not had any recent flare-ups. She has been having more frequent triggering of her left middle finger, it is sometimes painful. Now it happens almost every day. She is s/p left knee replacement lasts month and states that she is recovering very well and scheduled for right knee replacement 07/2024 With regards to her bladder cancer, she stated that she recently had another resection, she states that the CT scan did not show a metastasis, she is waiting for the pathology. She states that if it is noninvasive, she might get a recently approved FDA immunotherapy, if it is invasive, she might need a cystectomy versus chemotherapy. Initial history: This is a 77-year-old female with a past medical history of seronegative RA presents for follow-up. She was last seen by Estrellita Velázquez 09/05. She was then followed by Dr. Mendoza at the [facility]. Methotrexate was discontinued and hydroxychloroquine was continued. Patient also mentions that she would get prednisone tapers. She also has been following up with due in and Orthopedics for her bilateral knee osteoarthritis. She gets steroid injections every 3 months and gel injections every 6 months. She states that over the last few months she has been having worsening pain and stiffness in her fingers, morning stiffness lasting 1 hour. Associated with swelling of her 2nd and 3rd MCPs bilaterally. She states that she has had a reddish patch on the left side of her neck that seems to get worse when her arthritis is worse. [facility], [facility] Medical History Bladder cancer Calcium pyrophosphate deposition disease (CPPD) Primary osteoarthritis of left knee Primary osteoarthritis of right knee Macrocytosis Surgical History History of left knee replacement History of heart artery stent Social History Alcohol intake: never Patient Tobacco Use Status: Former Tobacco user Review of Systems [facility] [place] Reports arthralgias and Reports stiffness Physical Exam Vital Signs: Last Vital Signs Pulse 74 04/15/24 10:31 BP 112/72 04/15/24 10:31 Pulse Ox 97 04/15/24 10:31 Oxygen Delivery Method Room Air 04/15/24 10:31 BMI result Body Mass Index 24.7 Const General: cooperative, healthy appearing and comfortable Nutritional Appearance: average body habitus Orientation/consciousness: patient oriented x3 Limitations: ambulation with cane HEENT Head: Yes normocephalic and Yes atraumatic Mouth: moist mucous membranes Resp Effort & Inspection: normal respiratory effort and able to speak in complete sentences Auscultation: clear to auscultation bilaterally Cardio Rate: regular rate Skin Other: Small circular scaly rash on the outer aspect of the left side of her neck Neuro General: patient oriented x3 Extrem Other: No swelling or tenderness both hands, wrists and fingers Triggering of left middle finger Normal range of motion of both elbows and shoulders without pain Left knee warmth Right knee pain with flexion-extension Right knee valgus Results Reviewed Results Reviewed: Labs 10/2021? CCP/RF negative Hepatitis panel negative QuantiFERON gold negative ESR 11? CRP normal Labs 2015 CCP 34 (weak positive) RAJ 1-320 homogeneous? ASMA? 61 (strong positive) P-ANCA positive TPO/SSA/SSB/[place]/BAND SAW OPERATOR CAKE CUTTING/Scl 70/Heather-1/histone/HLA B27 all negative Assessment & Plan Assessment & Plan (1) Seropositive rheumatoid arthritis: Comment: +CCP (-ve on repeat) -ve RF dx 2016 on MTX & HCQ since 2015 MTX DC 2021 causing flare, restarted 04/2023 effective Code(s): M05.9 - Rheumatoid arthritis with rheumatoid factor, unspecified Category: Medical Plan: This is a 78-year-old female with seropositive RA who returns for follow-up. She is in remission. Continue hydroxychloroquine 400 mg a day x5 days a week and 200 mg a day x2 days a a week Continue methotrexate 17.5 mg weekly Continue folic acid 1 mg daily Continue leucovorin 5 mg weekly Labs before next visit in 4 months (2) Long-term corticosteroid use: Comment: Alendronate 07/2023 Code(s): Z79.52 - intermission coordinator (current) use of systemic steroids Category: Medical Plan: Patient received numerous steroid injections her lifetime currently she gets steroid injections for both knees every 3 months, she was also on prednisone in the past. DEXA scan shows osteopenia but with a high FRAX score. Continue with alendronate 70 mg once weekly Repeat DEXA in 2024 (3) intermission coordinator methotrexate user: Code(s): Z79.899 - Other senior care (current) drug therapy Category: Medical Plan: Monitor safety lab (4) Abnormal ANCA test: Code(s): R76.8 - Other specified abnormal immunological findings in serum Category: Medical Plan: Labs from 05/03 she show a positive p-ANCA with no mention of MPO positivity. Labs also showed positive ASMA & RAJ 1:320 homogeneous. I do not see any signs of vasculitis upon evaluation today, recent LFTs were unremarkable. (5) Long-term use of hydroxychloroquine: Code(s): Z79.899 - Other senior care (current) drug therapy Category: Medical Plan: Patient is aware of risk of retinopathy associated with hydroxychloroquine. She gets regular eye exams. She states that she is due for an eye exam. Advised patient to have her command and control officer send me their most recent office note. She is due for an eye exam soon (6) Primary osteoarthritis of left knee: Code(s): M17.12 - Unilateral primary osteoarthritis, left knee Category: Medical Plan: S/p left knee replacement (7) Primary osteoarthritis of right knee: Code(s): M17.11 - Unilateral primary osteoarthritis, right knee Category: Medical Plan: Scheduled for right knee replacement 07/2024 (8) Trigger finger, left middle finger: Code(s): M65.332 - Trigger finger, left middle finger Category: Medical Plan: Discussed different treatment options, discussed OT. Discussed finger splints. At this time, patient will wear a Band-Aid on her PIP joint at night if no improvement, advised patient to call us and we will schedule her for a steroid injection Plan I spent 45 minutes reviewing patient's chart, evaluating patient, ordering diagnostic workup, counseling patient and documenting in the chart Orders: Orders Comprehensive Met. Panel 4 Months M05.9 - Rheumatoid arthritis with rheumatoid factor, unspecified, Z79.899 - Other rn long term care (current) drug therapy Erythrocyte Sedimentation Rate 4 Months M05.9 - Rheumatoid arthritis with rheumatoid factor, unspecified, Z79.899 - Other senior care (current) drug therapy Complete Blood Count Auto Diff 4 Months M05.9 - Rheumatoid arthritis with rheumatoid factor, unspecified, Z79.899 - Other senior care (current) drug therapy C Reactive Protein 4 Months M05.9 - Rheumatoid arthritis with rheumatoid factor, unspecified, Z79.899 - Other senior care (current) drug therapy Medications: Refilled folic acid 1 mg PO DAILY 90 tabs 1RF alendronate Take 1 tab once weekly, 1st thing in the morning, on an empty stomach, with a large glass of water, at least 6 oz and stay upright for 30 minutes 70 mg PO QWEEK 12 tabs 1RF leucovorin calcium Take the day after you take methotrexate 5 mg PO QWEEK 12 tabs 1RF methotrexate sodium 17.5 mg (7 x 2.5 mg) PO QWEEK 84 tabs 1RF Coding Level of Care Code Est Pt Level 5 (71540) Complex EM visit Add On G2211 Diagnoses Seropositive rheumatoid arthritis M05.9 Long-term corticosteroid use Z79.52 intermission coordinator methotrexate user Z79.899 Abnormal ANCA test R76.8 Long-term use of hydroxychloroquine Z79.899 Primary osteoarthritis of left knee M17.12 Primary osteoarthritis of right knee M17.11 Trigger finger, left middle finger M65.332
== END 2024-04-15 10:54 | disposition home or self-care (01) ==
PROVIDERS: PCP Internal Medicine; Visit Provider Student in an Organized Health Care Education/Training Program
DX: M05.79 Rheumatoid arthritis with rheumatoid factor of multiple sites without organ or systems involvement (principal); Z79.52 Long term (current) use of systemic steroids; Z79.899 Other long term (current) drug therapy; R76.8 Other specified abnormal immunological findings in serum; M17.0 Bilateral primary osteoarthritis of knee; M65.332 Trigger finger, left middle finger
CPT/HCPCS: 99215; G2211

== ENCOUNTER → 2024-04-15 10:17 | Outpatient (BNVA) | payer MEDICARE, OTHER, SELFPAY | PROVIDERS: PCP Internal Medicine; Visit Provider Student in an Organized Health Care Education/Training Program | DX: M05.9 Rheumatoid arthritis with rheumatoid factor, unspecified (principal); M17.0 Bilateral primary osteoarthritis of knee; R76.8 Other specified abnormal immunological findings in serum; M65.332 Trigger finger, left middle finger; Z79.52 Long term (current) use of systemic steroids; Z79.899 Other long term (current) drug therapy | CPT/HCPCS: 99212 ==

== ENCOUNTER 2024-08-17 10:38 | Outpatient (AMB) | payer MEDICARE, OTHER, SELFPAY ==
--- NOTE | 2024-08-17 10:44 | MHC.OFFVIS ---
Vital Signs 08/17/24 10:47 Height 5 ft 4.5 in Weight 146 lb 2.664 oz BMI 24.7 BP 112/60 Blood Pressure Location Lt brachial Position Sitting Pulse 80 Pulse Source Pulse Oximeter Pulse Oximetry (%) 95 Oxygen Delivery Method Room Air Intake Visit Reasons: RA/CM APT Intake Note: Patient presents for RA. Allergies No Known Allergies Allergy (Verified 08/17/24 10:46) Medication List - Last Reconciled 08/17/24 by Amy Gómez MD alendronate 70 mg PO QWEEK aspirin (Adult Low Dose Aspirin) 81 mg PO DAILY atorvastatin 80 mg PO DAILY folic acid 1 mg PO DAILY furosemide 20 mg PO DAILY PRN hydroxychloroquine 200 mg PO BID leucovorin calcium 5 mg PO QWEEK levothyroxine 112 mcg PO DAILY losartan 12.5 mg PO DAILY methotrexate sodium 17.5 mg (7 x 2.5 mg) PO QWEEK metoprolol succinate ER 50 mg PO DAILY spironolactone 25 mg PO DAILY HPI Comments Details: 78-year-old female with seropositive RA (+CCP)returns for follow-up. She remains on hydroxychloroquine , methotrexate 17.5 mg weekly, Leucovorin 5 mg weekly and folic acid 1 mg daily. She states that her RA has been doing fairly well overall until last when she developed a flare-up affecting her right hand, multiple fingers were swollen and associated with burning and tingling of her right wrist and hand. She states that her left 3rd finger trigger has not really improved. Requesting an injection With regards to her bladder cancer, she stated that she recently had another resection, she states that the CT scan did not show a metastasis, she is waiting for the pathology. She states that if it is noninvasive, she might get a recently approved FDA immunotherapy, if it is invasive, she might need a cystectomy versus chemotherapy. Initial history: This is a 77-year-old female with a past medical history of seronegative RA presents for follow-up. She was last seen by Estrellita Velázquez 09/05. She was then followed by Dr. Mendoza at [facility]. Methotrexate was discontinued and hydroxychloroquine was continued. Patient also mentions that she would get prednisone tapers. She also has been following up with due in and Orthopedics for her bilateral knee osteoarthritis. She gets steroid injections every 3 months and gel injections every 6 months. She states that over the last few months she has been having worsening pain and stiffness in her fingers, morning stiffness lasting 1 hour. Associated with swelling of her 2nd and 3rd MCPs bilaterally. She states that she has had a reddish patch on the left side of her neck that seems to get worse when her arthritis is worse. [facility] Medical History Bladder cancer Calcium pyrophosphate deposition disease (CPPD) Primary osteoarthritis of left knee Primary osteoarthritis of right knee Macrocytosis Surgical History History of cataract surgery History of left knee replacement History of heart artery stent Social History Alcohol intake: never Patient Tobacco Use Status: Former Tobacco user Review of Systems Musc Reports deformity, Reports arthralgias, Reports joint swelling, Reports numbness, Reports stiffness and Reports tingling Neuro Reports numbness and Reports tingling Physical Exam Vital Signs: Last Vital Signs Pulse 80 08/17/24 10:47 BP 112/60 08/17/24 10:47 Pulse Ox 95 08/17/24 10:47 Oxygen Delivery Method Room Air 08/17/24 10:47 BMI result Body Mass Index 24.7 Const General: cooperative, healthy appearing and comfortable Nutritional Appearance: average body habitus Orientation/consciousness: patient oriented x3 Limitations: ambulation with cane HEENT Head: Yes normocephalic and Yes atraumatic Mouth: moist mucous membranes Resp Effort & Inspection: normal respiratory effort and able to speak in complete sentences Auscultation: clear to auscultation bilaterally Cardio Rate: regular rate Skin Other: Small circular scaly rash on the outer aspect of the left side of her neck Neuro General: patient oriented x3 Extrem Other: Minimal right wrist swelling and pain with flexion and extension Right 3rd PIP swelling and tenderness, pain with range of motion Right 3rd and 4th flexor tendon tenderness Triggering of left middle finger with early signs of Dupuytren's contracture Normal range of motion of both elbows and shoulders without pain Right knee pain with flexion-extension Right knee valgus Office Procedures AMB Joint Injection/Aspiration Joint Injection/Aspiration Primary Site: left trigger finger Prep: site was prepped using sterile technique and ethochloride spray was applied Injected: 20 mg of, Kenalog and other (0.1 mL of 1% lidocaine) Procedure: The patient tolerated the procedure well Coding Details: With patient's consent. The palm of the left hand was prepped with ChloraPrep and alcohol. Under topical ethyl chloride spray the [3rd] flexor tendon sheath was injected with 20 mg of triamcinolone and 0.1 cc of 1% lidocaine. The patient tolerated the procedure without any acute complications. Additional procedure code (CPT) needed (31602) Office Meds Kenalog 40 mg/mL suspension for injection Performing Provider: Amy Gómez MD Performing Location: [facility] Rheumatology Administered by: Amy Gómez MD on 08/17/24 11:31 Dose Route Admin Location Dispensed Lot Number Expiration Date [facility] Senior Education [employer]ist 40 mg Tendon Sheath Inj. Left 3rd flexor tendon 1 mL [id number] 03/16/26 [address]-8 [employer] lidocaine (PF) 10 mg/mL (1 %) injection solution Performing Provider: Amy Gómez MD Performing Location: [facility] Rheumatology Administered by: Amy Gómez MD on 08/17/24 11:31 Dose Route Admin Location Dispensed Lot Number Expiration Date [facility] Senior Education Specialist 10 mg Infiltration LEFT 3RD TRIGGER FINGER 2 mL [id number] 12/15/26 98022-272-74 [facility] Assessment & Plan Assessment & Plan (1) Seropositive rheumatoid arthritis: Comment: +CCP (-ve on repeat) -ve RF dx 2016 on MTX & HCQ since 2015 MTX DC 2021 causing flare, restarted 04/2023 effective Code(s): M05.9 - Rheumatoid arthritis with rheumatoid factor, unspecified Category: Medical Plan: This is a 78-year-old female with seropositive RA who returns for follow-up. She has developed a flare-up affecting her right hand. Prednisone taper sent for relief. Advised patient to keep a log of her flare-ups, if she has frequent flare-ups we may need to increase her methotrexate Continue hydroxychloroquine 400 mg a day x5 days a week and 200 mg a day x2 days a a week Continue methotrexate 17.5 mg weekly Continue folic acid 1 mg daily Continue leucovorin 5 mg weekly Labs before next visit in 3-4 months (2) Long-term corticosteroid use: Comment: Alendronate 07/2023 Code(s): Z79.52 - consulting utility forester (current) use of systemic steroids Category: Medical Plan: Patient received numerous steroid injections her lifetime currently she gets steroid injections for both knees every 3 months, she was also on prednisone in the past. DEXA scan shows osteopenia but with a high FRAX score. 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 Labs also showed positive ASMA & RAJ 1:320 homogeneous. I do not see any signs of vasculitis upon evaluation today, recent LFTs were unremarkable. (5) Long-term use of hydroxychloroquine: Code(s): Z79.899 - Other assisted (current) drug therapy Category: Medical Plan: Patient is aware of risk of retinopathy associated with hydroxychloroquine. She gets regular eye exams. I will request records from patient's most recent office visit (6) Primary osteoarthritis of left knee: Code(s): M17.12 - Unilateral primary osteoarthritis, left knee Category: Medical Plan: S/p left knee replacement (7) Primary osteoarthritis of right knee: Code(s): M17.11 - Unilateral primary osteoarthritis, right knee Category: Medical Plan: Was Scheduled for right knee replacement 07/2024, she had to postpone as her was sick (8) Trigger finger, left middle finger: Code(s): M65.332 - Trigger finger, left middle finger Category: Medical Plan: Getting worse, requesting an injection. With patient's consent, left 3rd trigger finger was injected with Kenalog. If no improvement in 2 weeks. Advised patient to call the office and we will refer her to a hand surgeon Plan I spent 45 minutes reviewing patient's chart, evaluating patient, ordering diagnostic workup, counseling patient and documenting in the chart Orders: Orders Comprehensive Met. Panel 3 Months M05.9 - Rheumatoid arthritis with rheumatoid factor, unspecified, Z79.899 - Other assisted (current) drug therapy C Reactive Protein 3 Months M05.9 - Rheumatoid arthritis with rheumatoid factor, unspecified, Z79.899 - Other assisted (current) drug therapy Erythrocyte Sedimentation Rate 3 Months M05.9 - Rheumatoid arthritis with rheumatoid factor, unspecified, Z79.899 - Other dough mixer helper (current) drug therapy Complete Blood Count Auto Diff 3 Months M05.9 - Rheumatoid arthritis with rheumatoid factor, unspecified, Z79.899 - Other assisted (current) drug therapy AMB Joint Injection/Aspiration Today M65.332 - Trigger finger, left middle finger Medications: New Kenalog (triamcinolone acetonide) 40 mg Tendon Sheath Inj. ONCE 1 mL 0RF NS M65.332 - Trigger finger, left middle finger lidocaine (PF) 10 mg Infiltration ONCE 2 mL 0RF M65.332 - Trigger finger, left middle finger prednisone Take 3 tabs daily for 1 week then 2 tabs daily for 1 week then 1 tab daily for 1 week then stop 42 tabs 0RF Changed From hydroxychloroquine 200 mg PO BID 180 tabs 0RF To hydroxychloroquine Take 2 tabs daily x5 days a week and 1 tab daily x2 days 144 tabs 1RF Refilled leucovorin calcium Take the day after you take methotrexate 5 mg PO QWEEK 12 tabs 1RF folic acid 1 mg PO DAILY 90 tabs 1RF methotrexate sodium 17.5 mg (7 x 2.5 mg) PO QWEEK 84 tabs 1RF Coding Level of Care Code Est Pt Level 5 (93088) Complex EM visit Add On G2211 Diagnoses Seropositive rheumatoid arthritis M05.9 Long-term corticosteroid use Z79.52 longterm methotrexate user Z79.899 Abnormal ANCA test R76.8 Long-term use of hydroxychloroquine Z79.899 Primary osteoarthritis of left knee M17.12 Primary osteoarthritis of right knee M17.11 Trigger finger, left middle finger M65.332
[2024-08-17 10:47] VITALS: BP 112/60; PULSE 80; O2SAT 95; BMI 24.7
== END 2024-08-17 11:27 | disposition home or self-care (01) ==
PROVIDERS: PCP Internal Medicine; Visit Provider Student in an Organized Health Care Education/Training Program
DX: M05.79 Rheumatoid arthritis with rheumatoid factor of multiple sites without organ or systems involvement (principal); Z79.52 Long term (current) use of systemic steroids; Z79.899 Other long term (current) drug therapy; R76.8 Other specified abnormal immunological findings in serum; M17.0 Bilateral primary osteoarthritis of knee; M65.332 Trigger finger, left middle finger
CPT/HCPCS: 20550; 99215

== ENCOUNTER → 2024-08-17 10:38 | Outpatient (BNVA) | payer MEDICARE, OTHER, SELFPAY | PROVIDERS: PCP Internal Medicine; Visit Provider Student in an Organized Health Care Education/Training Program | DX: M05.9 Rheumatoid arthritis with rheumatoid factor, unspecified (principal); R76.8 Other specified abnormal immunological findings in serum; M17.0 Bilateral primary osteoarthritis of knee; M65.332 Trigger finger, left middle finger; Z79.631 Long term (current) use of antimetabolite agent; Z79.899 Other long term (current) drug therapy; Z79.52 Long term (current) use of systemic steroids | CPT/HCPCS: 20550; 99212; J2003; J3300 ==

== ENCOUNTER 2024-11-17 11:19 | Outpatient (REF) | payer MEDICARE, OTHER, SELFPAY ==
[2024-11-17 11:41] LABS: MANUAL DIFF FLAG NO
[2024-11-17 12:40] LABS: Basophils Absolute Auto 0.1 X10*3/uL (0.0-0.2); Basophils Percent Auto 1.1 % (0-2); Eosinophils Absolute Auto 0.1 X10*3/uL (0.0-0.4); Eosinophils Percent Auto 1.3 % (0-4); Hemoglobin 12.6 g/dl (12.0-16.0); Imm Gran Abs Auto 0.03 X10*3/uL (0.00-0.03); Imm Gran Pct Auto 0.4 % (0.0-0.4); Lymphocytes Absolute Auto 1.3 X10*3/uL (1.2-4.9); Lymphocytes Percent Auto 17.6 % (20-40); Mean Corpuscular HGB Conc 33.2 g/dl (31.0-35.0); Mean Corpuscular Hemoglobin 35.4 pg (27.0-33.0); Mean Corpuscular Volume 106.7 fL (80.0-98.0); Mean Platelet Volume 10.1 fL (9.4-12.3); Monocytes Percent Auto 12.6 % (2-11); Neutrophils Absolute Auto 5.1 x10*3/uL (2.0-8.3); Platelet Count 199 X10*3/uL (160-400); Red Blood Count 3.56 X10*6/uL (4.20-5.50); Red Cell Distribution Width 13.4 % (11.0-16.0); White Blood Count 7.6 X10*3/uL (4.8-10.8)
[2024-11-17 13:08] LABS: Alanine Aminotransferase 32 U/L (0-31); Albumin Level 3.6 g/dL (3.5-5.0); Alkaline Phosphatase 57 U/L (39-117); Anion Gap 11 (12-20); Aspartate Amino Transferase 29 U/L (5-31); Bilirubin Total 0.4 mg/dL (0.0-1.0); Blood Urea Nitrogen 19 mg/dL (9-16); C Reactive Protein < 0.10 mg/dL (< or = 0.50); Calcium 8.8 mg/dL (8.4-10.2); Carbon Dioxide 27 mmol/L (22-29); Chloride 110 mmol/L (96-108); Estimated Glomerular Filt Rate > 60; Glucose Random 84 mg/dL (60-115); Potassium 4.8 mmol/L (3.3-5.1); Sodium 143 mmol/L (135-145); Total Protein 6.4 g/dL (6.5-8.0)
[2024-11-17 13:22] LABS: Erythrocyte Sedimentation Rate 6 MM/HR (0-20)
--- OUTSIDE RECORDS SUMMARY | 2024-11-17 14:17 | XMS_ITS | Clinical Summary ---
Author Organization [facility] Address [address] [place] [address] Care Team Providers Care Psychiatric Social Worker Name Role Phone Tj Adorno MD Primary Care Provider [phone] Allergies No known active allergies Medications aspirin 81 mg EC tablet Take 1 tablet (81 mg total) by mouth daily. Active atorvastatin (LIPITOR) 80 mg tablet Take 1 tablet (80 mg total) by mouth daily. Active dilTIAZem powder Take 180 mg by mouth daily. Active hydroxychloroqu ine (PLAQUENIL) 200 mg tablet Take 1 tablet (200 mg total) by mouth 2 (two) times a day. Active letrozole (FEMARA) 2.5 mg tablet TAKE 1 TABLET(2.5 MG) BY MOUTH DAILY 06/27/2021 Active levothyroxine (SYNTHROID, LEVOTHROID) 112 mcg tablet Take 1 tablet (112 mcg total) by mouth every morning on an empty stomach. Active losartan (COZAAR) 100 mg tablet Take 12.5 mg by mouth daily. Active methotrexate 2.5 mg tablet Take 7 tablets (17.5 mg total) by mouth once a week Active metoprolol tartrate (LOPRESSOR) 25 mg tablet Take 1 tablet (25 mg total) by mouth 2 (two) times a day. Active spironolactone (ALDACTONE) 25 mg tablet Take 1 tablet (25 mg total) by mouth daily. Active TICAGRELOR ORAL Take by mouth. 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 06/09/2024 Atypical ductal hyperplasia of left breast 06/09 Macrocytic anemia 09/25/2017 Rheumatoid arthritis involving multiple sites Hypothyroidism due to Basim's thyroiditis Fibromyalgia 09/25/2017 Effusion, right knee 09/25/2017 Resolved Problems Problem Noted Date Diagnosed Date Resolved Date Unspecified benign mammary d ysplasia of left breast 10/21/2019 06/09/2024 Immunizations Name Administration Dates Next Due Pfizer (ages 12 & older) Bivalent, COVID-19 07/17,12/16/2020,11/25/2020 Pfizer SARS-CoV-2 COVID-19, mRNA, LNP-S, preservative free 07/27/2021,12/16/2020,11/25/2020 Surgical History Surgery Date Site/Laterality Comments HYSTERECTOMY PROCEDURE:HYSTERECTOMY Medical History Medical History Date Comments Hypertension DX:Hypertension Family History Medical History Relation Name Comments Cancer Brother 1 Cancer Brother 2 Cancer Mother Cancer Mother's Sister Cancer Sister Relation Name Status Comments Brother 1 Brother 2 Mother Mother's Sister Sister Social History Tobacco Use Types Packs/Day Years Used Date Smoking Tobacco: Former Smokeless Tobacco: Never Alcohol Use Standard Drinks/Week Comments No 0 (1 standard drink = 0.6 oz pur e alcohol) Comments Unknown Sex and Gender Information Value Date Recorded Sex Assigned at Not on file Legal Sex Female 12:38 PM EST Gender Identity Not on file Sexual Orientation Not on file Obstetrics History Last Filed Vital Signs Vital Sign Reading Time Taken Comments Blood Pressure 104/85 03/25/2024 11:25 AM EDT Sitting Left arm Pulse 79 03/25/2024 11:25 AM EDT Temperature - - Respiratory Rate - - Oxygen Saturation - - Inhaled Oxygen Concentration - - Weight 65.8 kg (145 lb) 03/25/2024 11:2 5 AM EDT Height 163.8 cm (5' 4.5 ) 03/25/2024 11 :25 AM EDT Body Mass Index 24.51 03/25/2024 11:25 AM EDT Plan of Treatment Upcoming Encounters Date Type Department Care Team (Late st Contact Info) Description 03/25/2025 11:30 AM EDT Office Visit [facility] Hematology Oncology [address] [place] [address] Lit Viera MD [address] [place] [address] Health Maintenance Due Date Last Done Comments Zoster Vaccines (1 of 2) 1997 DTaP,Tdap,and Td Vaccines (2 - Td or Tdap) 05/21/2017 05/21/2007 Cholesterol Screening (Lipid Panel) 08/23/2022 Depression Screening 08/23/2022 Falls Risk Assessment 08/23/2022 Hepatitis C Screening 08/23/2022 Medicare Annual Wellness Visit 08/23/2022 Osteoporosis Screening (Bone Density Screening) 08/23/2022 Social Influencers of Health Screening 08/23/2022 RSV Immunization Patients 60+ Years Old (1 - 1-dose 75+ series) 2022 COVID-19 Vaccine ( season) 2024 07/27/2021, 07/27/2021, 12/16/2020, Additional history exists Influenza Vaccine (#1) 2024 , 06/04/2020, 08/22/2019, Additional history exists Pneumococcal Vaccine: 50+ Years Completed 09/22/2018, 10/18/2017, 04/27/2015, Additional history exists HIB Vaccines Aged Out No longer eligi ble based on patient's age to complete this topic HPV Vaccines Aged Out No longer eligi ble based on patient's age to complete this topic Hepatitis A Vaccines Aged Out No long er eligible based on patient's age to complete this topic Hepatitis B Vaccines Aged Out No long er eligible based on patient's age to complete this topic IPV Vaccines Aged Out No longer eligi ble based on patient's age to complete this topic MMR Vaccines Aged Out No longer eligi ble based on patient's age to complete this topic Meningococcal ACWY Vaccine Aged Out N o longer eligible based on patient's age to complete this topic Meningococcal B Vacine Aged Out No lo nger eligible based on patient's age to complete this topic RSV Immunization Patients Under 20 months Aged Out No longer eligible based on patient's age to complete this topic Varicella Vaccines Aged Out No longer eligible based on patient's age to complete this topic Insurance MEDICARE Care Teams Psychiatric Social Worker Relationship Specialty Start Date End Date Tj Adorno MD [address] [place] [id number] PCP - General Internal Medicine 01/01/18
--- OUTSIDE RECORDS SUMMARY | 2024-11-17 14:17 | XMS_ITS | Clinical Summary ---
Author Organization [facility] Address [address] [place] [address] Care Team Providers Care Turpentine Farmer Name Role Phone Tj Adorno MD Primary Care Provider [phone] Allergies No known active allergies Medications Medication Sig Dispensed Refills Start Date End Date Status levothyroxine (SYNTHROID) tablet 112 mcg Take 1 tablet (112 mcg total) by mouth every morning on an empty stomach. 0 Active methotrexate 2.5 MG tablet Take 7 tablets (17.5 mg total) by mouth every 7 days. 0 Active hydroxychloroquine (PLAQUENIL) 200 MG tablet Take 1 tablet (200 mg total) by mouth 2 (two) times a day. 0 Active aspirin EC 81 MG tablet Take 1 tablet (81 mg total) by mouth daily. 0 Active DILTIAZEM HCL PO Take 180 mg by mouth daily. 0 Active losartan (COZAAR) 100 MG tablet Take 12.5 mg by mouth daily. 0 Active letrozole (FEMARA) 2.5 MG tablet TAKE 1 TABLET(2.5 MG) BY MOUTH DAILY 90 tablet 3 06/27/2021 Active atorvastatin (LIPITOR) tablet 80 mg Take 1 tablet (80 mg total) by mouth daily. 0 Active spironolactone (ALDACTONE) tablet 25 mg Take 1 tablet (25 mg total) by mouth daily. 0 Active metoprolol tartrate (LOPRESSOR) 25 MG tablet Take 1 tablet (25 mg total) by mouth 2 (two) times a day. 0 Active Ticagrelor (BRILINTA PO) Take by mouth. 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 Family History Medical History Relation Name Comments Cancer Brother 1 Cancer Brother 2 Cancer Maternal Aunt Cancer Mother Cancer Sister Relation Name Status Comments Brother 1 Brother 2 Maternal Aunt Mother Sister Social History Tobacco Use Types Packs/Day Years Used Date Smoking Tobacco: Former Smokeless Tobacco: Never Alcohol Use Standard Drinks/Week Comments No 0 (1 standard drink = 0.6 oz pur e alcohol) Sex and Gender Information Value Date Recorded Sex Assigned at Not on file Gender Identity Not on file Sexual Orientation Not on file Job Start Date Occupation Industry Not on file Not on file Not on file Last Filed Vital Signs Vital Sign Reading Time Taken Comments Blood Pressure 104/85 03/25/2024 11:25 AM EDT Pulse 79 03/25/2024 11:25 AM EDT Temperature 36.6 ??C (97.8 ??F) 03/25/2024 11:25 AM E DT Respiratory Rate - - Oxygen Saturation 100% 03/25/2024 11:25 AM EDT Inhaled Oxygen Concentration - - Weight 65.8 kg (145 lb) 03/25/2024 11:25 AM EDT Height 163.8 cm (5' 4.5 ) 03/25/2024 11:25 AM ED T Body Mass Index 24.5 03/25/2024 11:25 AM EDT Plan of Treatment Health Maintenance Due Date Last Done Comments Hepatitis C Screening 1945 Depression Screening 1959 Preventative Health Evaluation 1965 Shingrix-Zoster Vaccine (1 of 2) 1997 Fall Risk Assessment 2012 Osteoporosis Screening (DEXA Scan) 2012 DTap / Tdap / Td (2 - Td or Tdap) 05/21/2017 05/21/2007 RSV Adult > 60+ Yrs or (1 - 1-dose 75+ series) 2022 COVID-19 Vaccine ( - season) 2024 07/27/2021, 12/16/2020, 11/25/2020 Influenza Vaccine (#1) 2024 9, 11/21/2017, 06/16/2013, Additional history exists Pneumococcal Vaccine Completed 04/27/2015, 01/29/20 13 Hepatitis B Vaccines Aged Out No long er eligible based on patient's age to complete this topic RSV Ped < 20 months Aged Out No longe r eligible based on patient's age to complete this topic Care Teams Turpentine Farmer Relationship Specialty Start Date End Date Tj Adorno MD [address] [address] [place] [id number] PCP - General Internal Medicine 09/12/17
== END 2024-11-17 11:20 | disposition home or self-care (01) ==
LOC: HO.LAB 11:19
PROVIDERS: Visit Provider Student in an Organized Health Care Education/Training Program
DX: M05.9 Rheumatoid arthritis with rheumatoid factor, unspecified (principal); Z79.899 Other long term (current) drug therapy
CPT/HCPCS: 36415; 80053; 85025; 85652; 86140

== ENCOUNTER 2024-11-18 10:37 | Outpatient (AMB) | payer MEDICARE, OTHER, SELFPAY ==
--- NOTE | 2024-11-18 10:39 | MHC.OFFVIS ---
Vital Signs 11/18/24 10:43 Height 5 ft 4.5 in Weight 149 lb 14.629 oz BMI 25.3 BP 120/60 Blood Pressure Location Lt brachial Position Sitting Pulse 70 Pulse Source Pulse Oximeter Pulse Oximetry (%) 96 Oxygen Delivery Method Room Air Intake Visit Reasons: RA Intake Note: Patient presents for RA. Allergies No Known Allergies Allergy (Verified 11/18/24 10:42) Medication List - Last Reconciled 11/18/24 by Opal Irizarry MD alendronate 70 mg PO QWEEK aspirin (Adult Low Dose Aspirin) 81 mg PO DAILY atorvastatin 80 mg PO DAILY folic acid 1 mg PO DAILY furosemide 20 mg PO DAILY PRN hydroxychloroquine Take 2 tabs daily x5 days a week and 1 tab daily x2 days leucovorin calcium 5 mg PO QWEEK levothyroxine 112 mcg PO DAILY losartan 12.5 mg PO DAILY methotrexate sodium 17.5 mg (7 x 2.5 mg) PO QWEEK metoprolol succinate ER 50 mg PO DAILY prednisone Take 3 tabs daily for 1 week then 2 tabs daily for 1 week then 1 tab daily for 1 week then stop spironolactone 25 mg PO DAILY HPI Comments Details: Patient is a 79-year-old female with hypertension complicated CAD with stenting and CHF, hyperlipidemia, hypothyroidism, bladder cancer status post resection, 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 Gómez. At that time she was on hydroxychloroquine, methotrexate, leucovorin and folic acid. Reporting that her rheumatoid arthritis was doing fairly well but had a flare-up about a week prior to the appointment and persistent left 3rd trigger finger. She received left 3rd trigger finger injection. She received a prednisolone taper for her flare but no changes were made to her medication. Has had minor flares atleast once a week. Involving 1-2 joints, which also triggers Planning to get right knee replacement in Spring Currently undergoing surveillance for her bladder cancer, may need further surgery if there is more invasion Not currently a candidate for immunotherapy Has completed BCG treatment Rheumatologic History: Seropositive rheumatoid arthritis +CCP (-ve on repeat) -ve RF dx 2015 on MTX & HCQ since 2015 MTX DC 2021 causing flare, restarted 04/2023 effective Initial history: This is a 77-year-old female with a past medical history of seronegative RA presents for follow-up. She was last seen by Estrellita Velázquez 09/05. She was then followed by Dr. Mendoza at [facility]. Methotrexate was discontinued and hydroxychloroquine was continued. Patient also mentions that she would get prednisone tapers. She also has been following up with due in and Orthopedics for her bilateral knee osteoarthritis. She gets steroid injections every 3 months and gel injections every 6 months. She states that over the last few months she has been having worsening pain and stiffness in her fingers, morning stiffness lasting 1 hour. Associated with swelling of her 2nd and 3rd MCPs bilaterally. She states that she has had a reddish patch on the left side of her neck that seems to get worse when her arthritis is worse. Osteoporosis DEXA 2022 with left femur neck T-score -1.5 FRAX index for major osteoporotic fracture 23% and hip fracture 6% Alendronate 07/2023 Current Rheumatology Medication(s): Alendronate 70 mg weekly Hydroxychloroquine 200 mg b.i.d. 5 days a week and 200 mg daily 2 days a week Methotrexate 17.5 mg weekly Folic acid 1 mg daily Leucovorin 5 mg weekly PFS Medical History Bladder cancer Calcium pyrophosphate deposition disease (CPPD) Primary osteoarthritis of left knee Primary osteoarthritis of right knee Macrocytosis Surgical History History of cataract surgery History of left knee replacement History of heart artery stent Social History Alcohol intake: never Patient Tobacco Use Status: Former Tobacco user Review of Systems Const Details: Review of Systems Constitutional: Denies fever, chills, weight loss ENT: Denies vision changes, eye pain or eye redness, dental caries, dry mouth GI: Denies nausea, vomiting, diarrhea, abdominal pain, change in BM Pulm: Denies SOB, FERRO, hemoptysis, wheezing Cards: Denies chest pain, palpitations Skin: Denies Raynaud's, rash, nail changes, photosensitivity, R AND D LAB TECHNICIAN: Denies headaches, weakness, paresthesias, recurrent falls MSK: as per HPI All other systems reviewed and are unremarkable except noted above Physical Exam Vital Signs: Last Vital Signs Pulse 70 11/18/24 10:43 BP 120/60 11/18/24 10:43 Pulse Ox 96 11/18/24 10:43 Oxygen Delivery Method Room Air 11/18/24 10:43 BMI result Body Mass Index 25.3 Vital signs reviewed Physical Examination CONSTITUITIONAL Patient alert and cooperative. Well appearing and in no apparent painful distress HEENT Conjunctiva and sclera clear. ?Pupils equal round and reactive to light. ?No lymphadenopathy. ? CHEST/RESPIRATORY SYSTEM Normal respiratory effort and able to speak in complete sentences. ?Clear to auscultation bilaterally. ?No crackles, rales, rhonchi, wheezes heard. CARDIAC SYSTEM Regular rate and rhythm. ?S1 and S2 heard no murmurs. ?Radial pulses intact bilaterally MSK Hands: ?Able to make a fist bilaterally. TTP of MCPs 2nd - 5th bilateral hands. Swelling and TTP of the right 3rd PIP Wrists: ?Full range of motion at the wrists without pain. ?No tenderness to palpation or synovitis noted to the wrists. Elbows: Full range of motion without pain. No tenderness, weakness, swelling, increased warmth or erythema. Shoulders: Full range of motion without pain. No tenderness, weakness, swelling, increased warmth or erythema. Hips: Full range of motion without pain. Hip bursa: No tenderness to palpation Knees: ?Full range of motion. ?No tenderness, swelling, increased warmth or erythema.?Crepitation felt on the right Ankles: Full range of motion. ?No tenderness, swelling, increased warmth or erythema.? Feet: ?Negative squeeze test. ?No tenderness to palpation or swelling of the MTPs. Tender points:?No tenderness to palpation of the bilateral trapezius, supraspinatus, greater trochanters, anterior costochondral junctions, bilateral gluteal areas, bilateral suboccipital muscle insertions SKIN Skin intact without rashes. Results Reviewed Results Reviewed: Laboratory Tests 05/09/23 11/17/24 14:50 11:40 WBC 7.6 RBC 3.56 L Hgb 12.6 Hct 38.0 MCV 106.7 H MCH 35.4 H Plt Count 199 ESR 6 Sodium 143 Potassium 4.8 Chloride 110 H Carbon Dioxide 27 BUN 19 H Creatinine 0.60 Total Bilirubin 0.4 AST 29 ALT 32 H Alkaline Phosphatase 57 C-Reactive Protein < 0.10 Total Protein 6.4 L Albumin 3.6 Hepatitis A IgM Ab Nonreactive Hep Bs Antigen Negative Hep Bs Antibody NONREACTIVE Hep B Core Total Ab Nonreactive Hepatitis C Ab (EIA) Nonreactive TB Test (T-Spot) Com Negative XR Hand/Wrist 04/2023 RIGHT HAND/WRIST: There is bony demineralization. There is a neutral ulnar variance. There is mild osteoarthritic change of the interphalangeal joint of the thumb and of the fifth distal interphalangeal joint. There is mild osteoarthritic change of the second metacarpophalangeal joint. No fracture or dislocation is seen. There is no abnormal bone erosion. No focal soft tissue swelling, gas or foreign body is seen. LEFT HAND/WRIST: Bony alignment is normal. There is bony demineralization. No fracture. Alignment is anatomic. There is a mild ulnar minus variance. Joint spaces are maintained. A small periarticular calcification is seen adjacent to the interphalangeal joint of the thumb. No erosions. There is very mild chondrocalcinosis of the triangular ligament. IMPRESSION: RIGHT: 1. Mild osteoarthritic change is seen of the interphalangeal joint and of the fifth distal interphalangeal joint. 2. There is no abnormal bone erosion. LEFT: 1. No fracture or dislocation is seen. 2. There is very mild chondrocalcinosis of the triangular ligament, which can be associated with CPPD. 3. There is no abnormal bone erosion. DEXA 04/2023 FINDINGS: LEFT FEMUR, NECK: BMD 0.830 g/cm2, Z-score 0.4, T-score -1.5, osteopenia. LEFT FEMUR, TOTAL: BMD 0.903 g/cm2, Z-score 0.9, T-score -0.8, normal. AP SPINE L1-L4: BMD 1.051 g/cm2, Z-score 0.6, T-score -1.1, osteopenia. IDENTIFIED RISK FACTORS: Menopause, hysterectomy, glucocorticoids (chronic), rheumatoid arthritis. HISTORY OF FRACTURE: None listed. MEDICATIONS: Vitamin D. MM/XR DEXA axial skeleton IMPRESSION: 1. DIAGNOSIS: Osteopenia based on the lowest T-score value of -1.5 in the femoral neck applying World Health Organization criteria. 2. 10-YEAR FRACTURE RISK PREDICTION, FRAX: Major osteoporotic fracture (clinical spine, forearm, hip or shoulder) 23.0%. Hip fracture 6.0%. Assessment & Plan Assessment & Plan (1) Seropositive rheumatoid arthritis: Comment: +CCP (-ve on repeat) -ve RF dx 2016 on MTX & HCQ since 2015 MTX DC 2021 causing flare, restarted 04/2023 effective Code(s): M05.9 - Rheumatoid arthritis with rheumatoid factor, unspecified Category: Medical Plan: #Seropositive RA Patient is a 79-year-old female with current bladder cancer undergoing surveillance here today to follow up her seropositive rheumatoid arthritis. At this time I would say that her disease has a mild activity and is not at goal with respect to remission and or low disease activity. I discussed the possibility of increasing immunosuppression with her with the concomitant risk of increasing the risk of cancer and potentially worsening her current situation with her current cancer. Patient decided to hold off on increased immunosuppression at this time stating that she would rather deal with the cancer 1st then add additional issues. We will continue with the current therapy as is if patient has worsening of her disease from a rheumatoid arthritis standpoint we will escalate therapy. Plan - Methotrexate 17.5mg weekly PO - Folic acid 1mg daily - Leucovorin 5mg weekly - RTC 4 months - Labs before visit: CBC, CMP, ESR, CRP, hepatitis panel, T spot (2) Osteopenia: Code(s): M85.80 - Other specified disorders of bone density and structure, unspecified site Qualifiers: Osteopenia location: multiple sites Qualified Code(s): M85.89 - Other specified disorders of bone density and structure, multiple sites Plan: #Osteopenia with high FRAX Patient with osteopenia involving the AP spine and left femur, with the elevated FRAX score of 23% for major osteoporotic fracture and 6% for hip fracture. Currently on alendronate and tolerating this medication well. She is due for repeat DEXA scan and based on the results to evaluate the effectiveness of her alendronate. Plan - DEXA scan - Vitamin D supplementation - Alendronate 70mg PO weekly (3) roasterman methotrexate user: Code(s): Z79.899 - Other intermediate (current) drug therapy Category: Medical Plan: #Long-term Current Use of Methotrexate Discussed with patient the benefits and risks of methotrexate for managing their rheumatic condition Benefits include reduced pain, reduced mortality, maintenance of remission and reduction of flares Risks include oral ulcers, photosensitivity, hepatotoxicity, hematologic toxicity, pneumonitis, flu-like symptoms (especially day after administration), nodulosis, lymphomas ? Limit alcohol and avoid Bactrim ? Monitoring: ?CBC, BMP, LFTs every 3-4 months and hepatitis serologies as needed (4) Long-term use of hydroxychloroquine: Code(s): Z79.899 - Other intermediate accountant (current) drug therapy Category: Medical Plan: #Long-term Use of Hydroxychloroquine Discussed with patient the risks and benefits of hydroxychloroquine in managing the rheumatic condition Benefits include: - Reduced pain, reduce mortality, maintenance of remission and reduction of flares Risks include: - GI upset, skin hyperpigmentation, retinal toxicity (especially after more than 5 years of use), myopathy Advised yearly ophthalmology visits Plan I spent 35 minutes reviewing the record and labs, taking a history, examining the patient, discussing the treatment plan and documenting in the medical record Orders: Orders Complete Blood Count Auto Diff 4 Months E55.9 - Vitamin D deficiency, unspecified, M05.9 - Rheumatoid arthritis with rheumatoid factor, unspecified Comprehensive Met. Panel 4 Months E55.9 - Vitamin D deficiency, unspecified, M05.9 - Rheumatoid arthritis with rheumatoid factor, unspecified Hepatitis A,B,C Profile 4 Months E55.9 - Vitamin D deficiency, unspecified, M05.9 - Rheumatoid arthritis with rheumatoid factor, unspecified T Spot TB 4 Months E55.9 - Vitamin D deficiency, unspecified, M05.9 - Rheumatoid arthritis with rheumatoid factor, unspecified XR DEXA axial skeleton Today M85.80 - Other specified disorders of bone density and structure, unspecified site C Reactive Protein 4 Months E55.9 - Vitamin D deficiency, unspecified, M05.9 - Rheumatoid arthritis with rheumatoid factor, unspecified Erythrocyte Sedimentation Rate 4 Months E55.9 - Vitamin D deficiency, unspecified, M05.9 - Rheumatoid arthritis with rheumatoid factor, unspecified Vitamin D 25-OH (D2 and D3) 4 Months E55.9 - Vitamin D deficiency, unspecified, M05.9 - Rheumatoid arthritis with rheumatoid factor, unspecified Medications: Changed From methotrexate sodium 17.5 mg (7 x 2.5 mg) PO QWEEK 84 tabs 1RF M05.9 - Rheumatoid arthritis with rheumatoid factor, unspecified To methotrexate sodium 17.5 mg (7 x 2.5 mg) PO QWEEK 91 tabs 1RF 90 days M05.9 - Rheumatoid arthritis with rheumatoid factor, unspecified From alendronate Take 1 tab once weekly, 1st thing in the morning, on an empty stomach, with a large glass of water, at least 6 oz and stay upright for 30 minutes 70 mg PO QWEEK 12 tabs 1RF To alendronate Take 1 tab once weekly, 1st thing in the morning, on an empty stomach, with a large glass of water, at least 6 oz and stay upright for 30 minutes 70 mg PO QWEEK 13 tabs 1RF 90 days Refilled hydroxychloroquine Take 2 tabs daily x5 days a week and 1 tab daily x2 days 144 tabs 1RF folic acid 1 mg PO DAILY 90 tabs 1RF leucovorin calcium Take the day after you take methotrexate 5 mg PO QWEEK 12 tabs 1RF M05.9 - Rheumatoid arthritis with rheumatoid factor, unspecified Discontinued prednisone Discontinued Reason: Doctor's Order Take 3 tabs daily for 1 week then 2 tabs daily for 1 week then 1 tab daily for 1 week then stop 42 tabs 0RF Coding Level of Care Code Est Pt Level 4 (23149) Complex EM visit Add On G2211 Diagnoses Seropositive rheumatoid arthritis M05.9 Osteopenia of multiple sites M85.89 Osteopenia location: multiple sites roasterman methotrexate user Z79.899 Long-term use of hydroxychloroquine Z79.896
[2024-11-18 10:43] VITALS: BP 120/60; PULSE 70; O2SAT 96; BMI 25.3
--- OUTSIDE RECORDS SUMMARY | 2024-11-18 12:35 | XMS_ITS | Clinical Summary ---
Author Organization [facility] Address [address] [place] [address] Care Team Providers Care Sterile Preparation Technician Name Role Phone Tj Adorno MD Primary Care Provider [phone] Allergies No known active allergies Medications Medication [...] age to complete this topic Care Teams Sterile Preparation Technician Relationship Specialty Start Date End Date Tj Adorno MD [address] [address] [place] [phone] PCP - General Internal Medicine 09/12/17
--- OUTSIDE RECORDS SUMMARY | 2024-11-18 12:35 | XMS_ITS | Clinical Summary ---
Author Organization [facility] Address [address] [place] [address] Care Team Providers Care Geriatric Physical Therapist Name Role Phone Tj Adorno MD Primary Care Provider [phone] Allergies No known active allergies Medications aspirin [...] d ysplasia of left breast 10/21/2019 06/09/2024 Encounters Date Type Department Care Team Description 11/18/2024 Telephone [facility] Hematology Oncology [address] [place] [phone] Kinjal Banegas MA Mammo appt from Last 3 Months Immunizations Name Administration Dates Next Due Pfizer [...] Description 03/25/2025 11:30 AM EDT Office Visit [facility] Hematology Oncology [address] [place] [phone] Lit Viera MD [address] [place] [phone] Health Maintenance Due Date Last [...] complete this topic Insurance MEDICARE Care Teams Geriatric Physical Therapist Relationship Specialty Start Date End Date Tj Adorno MD [address] [place] [phone] PCP - General Internal Medicine 01/01/18
--- OUTSIDE RECORDS SUMMARY | 2024-11-18 12:35 | XMS_ITS | Encounter Summary ---
Author Organization [facility] Address [address] [place] [address] Care Team Providers Care Still Cleaner Name Role Phone Tj Adorno MD Primary Care Provider [phone] Reason for Visit * Reason Onset Date Comments Mammo appt 11/18/2024 Encounter Details Date Type Department Care Team (Late Contact Info) Description 11/18/2024 Telephone [facility] Hematology Oncology [address] [place] [phone] Kinjal Banegas MA Mammo appt Social History Tobacco Use Types Packs/Day Years Used Date Smoking Tobacco: Former Smokeless Tobacco: Never Alcohol Use Standard Drinks/Week Comments No 0 (1 standard drink = 0.6 oz pur e alcohol) Comments Unknown Sex and Gender Information Value Date Recorded Sex Assigned at Not on file Legal Sex Female 12:38 PM EST Gender Identity Not on file Sexual Orientation Not on file documented as of this encounter Progress Notes * Kinjal Banegas MA - 11/18/2024 10:46 AM EST Images from the original note were not included. Pt has been scheduled for Mammo at [place], letter mailed to pt with appt details: documented in this encounter Plan of Treatment Upcoming Encounters Date Type Department Care Team (Late Contact Info) Description 03/25/2025 11:30 AM EDT Office Visit [facility] Hematology Oncology [address] [place] [phone] Lit Viera MD [address] [place] [phone] documented as of this encounter Visit Diagnoses Not on filedocumented in this encounter Care Teams Still Cleaner Relationship Specialty Start Date End Date Tj Adorno MD [address] [place] [phone] PCP - General Internal Medicine 01/01/18 documented as of this encounter
== END 2024-11-18 11:31 | disposition home or self-care (01) ==
LOC: HO.RHE 10:37
PROVIDERS: PCP Internal Medicine; Visit Provider Student in an Organized Health Care Education/Training Program
DX: M05.79 Rheumatoid arthritis with rheumatoid factor of multiple sites without organ or systems involvement (principal); M85.89 Other specified disorders of bone density and structure, multiple sites; Z79.899 Other long term (current) drug therapy
CPT/HCPCS: 99214; G2211

== ENCOUNTER → 2024-11-18 10:37 | Outpatient (BNVA) | payer MEDICARE, OTHER, SELFPAY | PROVIDERS: PCP Internal Medicine; Visit Provider Student in an Organized Health Care Education/Training Program | DX: M85.89 Other specified disorders of bone density and structure, multiple sites (principal); E55.9 Vitamin D deficiency, unspecified; M05.9 Rheumatoid arthritis with rheumatoid factor, unspecified; M15.9 Polyosteoarthritis, unspecified; I11.0 Hypertensive heart disease with heart failure; I25.10 Atherosclerotic heart disease of native coronary artery without angina pectoris; I50.9 Heart failure, unspecified; Z96.652 Presence of left artificial knee joint; Z79.899 Other long term (current) drug therapy; Z95.828 Presence of other vascular implants and grafts | CPT/HCPCS: 99212 ==

== ENCOUNTER 2025-03-29 11:45 | Outpatient (REF) | payer MEDICARE, OTHER, SELFPAY ==
[2025-03-29 12:03] LABS: MANUAL DIFF FLAG NO
[2025-03-29 12:34] LABS: Hematocrit 38.7 % (37.0-47.0); Hemoglobin 12.9 g/dl (12.0-16.0); Imm Gran Abs Auto 0.02 X10*3/uL (0.00-0.03); Imm Gran Pct Auto 0.3 % (0.0-0.4); Lymphocytes Absolute Auto 1.2 X10*3/uL (1.2-4.9); Mean Corpuscular HGB Conc 33.3 g/dl (31.0-35.0); Mean Corpuscular Hemoglobin 35.1 pg (27.0-33.0); Mean Corpuscular Volume 105.2 fL (80.0-98.0); NRBC Abs Auto 0.000 X10*3/uL (0.0-0.012); NRBC Pct Auto 0.0 /100WBC (0.0-0.2); Platelet Count 245 X10*3/uL (160-400); Red Blood Count 3.68 X10*6/uL (4.20-5.50); White Blood Count 7.7 X10*3/uL (4.8-10.8)
--- OUTSIDE RECORDS SUMMARY | 2025-03-29 12:53 | XMS_ITS | Clinical Summary ---
Author Organization [facility] Address [address] [place] [address] Care Team Providers Care Refinery Pipeline Operator Name Role Phone Tj Adorno MD Primary Care Provider [phone] Allergies No known active allergies Medications Medication [...] 79 03/25/2024 11:25 AM EDT Temperature 36.6 C (97.8 F) 03/25/2024 11:25 AM EDT Respiratory Rate - - Oxygen Saturation 100% [...] 2024 07/27/2021, 12/16/2020, 11/25/2020 Influenza Vaccine (#1) 2025 9, 11/21/2017, 06/16/2013, Additional history exists Pneumococcal Vaccine Completed 04/27/2015, 01/29/20 13 Hepatitis B Vaccines Aged Out No long er eligible based on patient's age to complete this topic RSV Ped < 20 months Aged Out No longe r eligible based on patient's age to complete this topic Care Teams Refinery Pipeline Operator Relationship Specialty Start Date End Date Tj Adorno MD [address] [place] [address] [place] [phone] PCP - General Internal Medicine 09/12/17
[2025-03-29 13:03] LABS: Alanine Aminotransferase 32 U/L (0-31); Albumin Level 3.8 g/dL (3.5-5.0); Alkaline Phosphatase 68 U/L (39-117); Anion Gap 11 (12-20); Aspartate Amino Transferase 34 U/L (5-31); Blood Urea Nitrogen 26 mg/dL (9-16); Calcium 9.3 mg/dL (8.4-10.2); Carbon Dioxide 28 mmol/L (22-29); Chloride 106 mmol/L (96-108); Estimated Glomerular Filt Rate > 60; Potassium 4.9 mmol/L (3.3-5.1); Sodium 140 mmol/L (135-145); Total Protein 6.3 g/dL (6.5-8.0)
[2025-03-30 08:22] LABS: HBS Num1 2.59 mIU/mL (0-7.99); HBc Num1 0.03 S/CO (0.00-0.79); HBsAGNum1 0.42 S/CO (0.00-0.99); Hepatitis A Antibody IgM 0.18 Index (0-0.79); Hepatitis B Surface Antigen Negative (Negative); ~HepC Num1 0.06 S/CO (0.00-0.79); ~Hepatitis A Antibody IgM Nonreactive (Nonreactive); ~Hepatitis B Surface Antibody NONREACTIVE (Nonreactive); ~Hepatitis C Antibody Nonreactive (Nonreactive)
[2025-04-01 06:53] LABS: TS Negative Control Passed; TS Panel A 0; TS Panel B 0; TS Positive Control Passed; TSpotTB Negative (Negative)
[2025-04-01 14:52] LABS: Vitamin D 25-OH, D2 <4 ng/mL; Vitamin D 25-OH, D3 29 ng/mL; Vitamin D 25-OH, Total 29 ng/mL (30-100)
== END 2025-03-29 11:46 | disposition home or self-care (01) ==
LOC: HO.LAB 11:45
PROVIDERS: PCP Nurse Practitioner Family; Visit Provider Student in an Organized Health Care Education/Training Program
DX: Z11.4 Encounter for screening for human immunodeficiency virus [HIV] (principal); Z11.59 Encounter for screening for other viral diseases; E55.9 Vitamin D deficiency, unspecified; M05.9 Rheumatoid arthritis with rheumatoid factor, unspecified; Z72.89 Other problems related to lifestyle
CPT/HCPCS: 36415; 80053; 82306; 85025; 85652; 86140; 86481; 86704; 86706; 86709; 86803; 87340

== ENCOUNTER 2025-03-30 10:18 | Outpatient (AMB) | payer MEDICARE, OTHER, SELFPAY ==
--- NOTE | 2025-03-30 10:22 | A.OFFVIS_ITS ---
Vital Signs 03/30/25 10:27 Height 5 ft 4.5 in Weight 154 lb 5.177 oz BMI 26.1 BP 120/62 Blood Pressure Location Rt brachial Position Sitting Pulse 79 Pulse Source Pulse Oximeter Pulse Oximetry (%) 98 Oxygen Delivery Method Room Air Intake Visit Reasons: RA Intake Note: Patient presents for RA follow up. Allergies No Known Allergies Allergy (Verified 03/30/25 10:26) Medication List - Last Reconciled 03/30/25 by Opal Irizarry MD alendronate 70 mg PO QWEEK 90 days aspirin (Adult Low Dose Aspirin) 81 mg PO DAILY atorvastatin 80 mg PO DAILY folic acid 1 mg PO DAILY furosemide 20 mg PO DAILY PRN hydroxychloroquine Take 2 tabs daily x5 days a week and 1 tab daily x2 days leucovorin calcium 5 mg PO QWEEK levothyroxine 112 mcg PO DAILY losartan 12.5 mg PO DAILY methotrexate sodium 17.5 mg (7 x 2.5 mg) PO QWEEK 90 days methylprednisolone (Medrol (Eduardo)) PO PER PKG DIR for 6 days metoprolol succinate ER 50 mg PO DAILY spironolactone 25 mg PO DAILY HPI Comments Details: Patient is a 79-year-old female with hypertension complicated CAD with stenting and CHF, hyperlipidemia, hypothyroidism, bladder cancer status post resection, 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 Involving 1-2 joints, which also triggers - undergoing surveillance for her bladder cancer, may need further surgery if there is more invasion. Not currently a candidate for immunotherapy. Has completed BCG treatment - had mild disease activity and patient opted to continue her current regimen while waiting for decisions regarding her cancer Today, - Continues to have intermittent joint pains - Had to get a medrol dose pack for hand swelling and pain Rheumatologic History: Seropositive rheumatoid arthritis +CCP (-ve on repeat) -ve RF dx 2015 on MTX & HCQ since 2015 MTX DC 2021 causing flare, restarted 04/2023 effective Initial history: This is a 77-year-old female with a past medical history of seronegative RA presents for follow-up. She was last seen by Estrellita Velázquez 09/05. She was then followed by Dr. Mendoza at [facility]. Methotrexate was discontinued and hydroxychloroquine was continued. Patient also mentions that she would get prednisone tapers. She also has been following up with due in and Orthopedics for her bilateral knee osteoarthritis. She gets steroid injections every 3 months and gel injections every 6 months. She states that over the last few months she has been having worsening pain and stiffness in her fingers, morning stiffness lasting 1 hour. Associated with swelling of her 2nd and 3rd MCPs bilaterally. She states that she has had a reddish patch on the left side of her neck that seems to get worse when her arthritis is worse. Osteoporosis DEXA 2022 with left femur neck T-score -1.5 FRAX index for major osteoporotic fracture 23% and hip fracture 6% Alendronate 07/2023 Current Rheumatology Medication(s): Alendronate 70 mg weekly Hydroxychloroquine 200 mg b.i.d. 5 days a week and 200 mg daily 2 days a week Methotrexate 17.5 mg weekly Folic acid 1 mg daily Leucovorin 5 mg weekly [facility] Medical History (Updated 03/30/25 @ 10:58 by Opal Irizarry MD) Osteopenia Bladder cancer Calcium pyrophosphate deposition disease (CPPD) Primary osteoarthritis of left knee Primary osteoarthritis of right knee Macrocytosis Surgical History History of cataract surgery History of left knee replacement History of heart artery stent Social History Alcohol intake: never Patient Tobacco Use Status: Former Tobacco user Review of Systems Const Details: Review of Systems Constitutional: Denies fever, chills, weight loss ENT: Denies vision changes, eye pain or eye redness, dental caries, dry mouth GI: Denies nausea, vomiting, diarrhea, abdominal pain, change in BM Pulm: Denies SOB, FERRO, hemoptysis, wheezing Cards: Denies chest pain, palpitations Skin: Denies Raynaud's, rash, nail changes, photosensitivity, MAINTENANCE ASSISTANT: Denies headaches, weakness, paresthesias, recurrent falls MSK: as per HPI All other systems reviewed and are unremarkable except noted above Physical Exam Vital Signs: Last Vital Signs Pulse 79 03/30/25 10:27 BP 120/62 03/30/25 10:27 Pulse Ox 98 03/30/25 10:27 Oxygen Delivery Method Room Air 03/30/25 10:27 BMI result Body Mass Index 26.1 Vital signs reviewed Physical Examination CONSTITUITIONAL Patient alert and cooperative. Well appearing and in no apparent painful distress HEENT Conjunctiva and sclera clear. No lymphadenopathy. CHEST/RESPIRATORY SYSTEM Normal respiratory effort and able to speak in complete sentences. Clear to auscultation bilaterally. No crackles, rales, rhonchi, wheezes heard. CARDIAC SYSTEM Regular rate and rhythm. S1 and S2 heard no murmurs. Radial pulses intact bilaterally MSK Hands * Right Hand: Able to make a fist. Swelling and TTP noted to the 3rd PIP. TTP of the * Left Hand: Able to make a fist. No swelling but tenderness to palpation of the MCPs or PIPs Wrists * Right Wrist: Full ROM. 70 degrees of wrist flexion, 80 degrees of wrist extension. No swelling or TTP * Left Wrist: Full ROM. 70 degrees of wrist flexion, 80 degrees of wrist extension. No swelling or TTP Elbows * Right Elbow: Full ROM. No swelling or TTP. No TTP of the medial and lateral epicondyles * Left Elbow: Full ROM. No swelling or TTP. No TTP of the medial and lateral epicondyles Shoulders * Right shoulder: Full ROM. No swelling noted. TTP of the bilateral AC joint. No TTP of the subacromial bursa or posterior shoulder * Left shoulder: Full ROM. No swelling noted. TTP of the bilateral AC joint. No TTP of the subacromial bursa or posterior shoulder Knees * Right knee: Full ROM. No swelling noted. No TTP of the knee joint lie or pes anserine bursa. * Left knee: Full ROM. No swelling noted. No TTP of the knee joint lie or pes anserine bursa. * Crepitations felt bilaterally Ankles * Right ankle: Good ankle dorsiflexion and plantar flexion. No swelling. No TTP of the ankle joint * Left ankle: Good ankle dorsiflexion and plantar flexion. No swelling. No TTP of the ankle joint Feet * Right foot: Negative squeeze test * Left foot: Negative squeeze test Tender points? * No tenderness to palpation of the bilateral trapezius, supraspinatus, anterior costochondral junctions, bilateral suboccipital muscle insertions SKIN No rashes Results Reviewed Results Reviewed: Laboratory Tests 11/17/24 03/29/25 11:40 12:00 WBC 7.7 RBC 3.68 L Hgb 12.9 Hct 38.7 MCV 105.2 H Plt Count 245 ESR 17 Sodium 140 Potassium 4.9 Chloride 106 Carbon Dioxide 28 BUN 26 H Creatinine 0.64 AST 29 34 H ALT 32 H 32 H C-Reactive Protein < 0.10 0.14 DEXA 04/2023 FINDINGS: LEFT FEMUR, NECK: BMD 0.830 g/cm2, Z-score 0.4, T-score -1.5, osteopenia. LEFT FEMUR, TOTAL: BMD 0.903 g/cm2, Z-score 0.9, T-score -0.8, normal. AP SPINE L1-L4: BMD 1.051 g/cm2, Z-score 0.6, T-score -1.1, osteopenia. 10-YEAR FRACTURE RISK PREDICTION, FRAX: Major osteoporotic fracture (clinical spine, forearm, hip or shoulder) 23.0%. Hip fracture 6.0%. DEXA 12/2024 AP spine -0.9 Total hip -0.9 Ba Neck -1.7 Assessment & Plan Assessment & Plan (1) Seropositive rheumatoid arthritis: Comment: +CCP (-ve on repeat) -ve RF dx 2016 on MTX & HCQ since 2015 MTX DC 2021 causing flare, restarted 04/2023 effective Code(s): M05.9 - Rheumatoid arthritis with rheumatoid factor, unspecified Category: Medical Plan: #Seropositive RA Patient is a 79-year-old female with current bladder cancer undergoing surveillance here today to follow up her seropositive rheumatoid arthritis. At this time her disease continues to have mild activity and is not at goal with respect to remission and/or low disease activity. Based on her current diagnosis with bladder cancer and surveillance with intemittent removal of masses I do not think the benefit of immunosuppression outweighs the risk of cancer progression. That being said I think she needs an additional agent. We will try sulfasalazine. Plan - Methotrexate 17.5mg weekly PO - Folic acid 1mg daily - Leucovorin 5mg weekly - Sulfasalazine 500mg bid x 2 weeks then 1000mg bid - Hydroxychloroquine 200mg bid - RTC 4 months - Labs before visit: CBC, CMP, ESR, CRP (2) Osteopenia: Comment: DEXA 04/2023. AP Spine -1.1, Left femur neck -1.5, Left femur total -0.8. FRAX 23%/6% DEXA 12/2024. AP Spine -0.9, Left femur neck -1.7, Left femur total -0.9 Alendronate 2022 Code(s): M85.80 - Other specified disorders of bone density and structure, unspecified site Category: Medical Qualifiers: Osteopenia location: multiple sites Qualified Code(s): M85.89 - Other specified disorders of bone density and structure, multiple sites Plan: #Osteopenia with high FRAX Patient with osteopenia involving the AP spine and left femur, with the elevated FRAX score of 23% for major osteoporotic fracture and 6% for hip fracture. Currently on alendronate and tolerating this medication well. No change in her DEXA scan. Will check collagen C telopeptide to get a better sense of her bone turnover Plan - Vitamin D supplementation - Alendronate 70mg PO weekly (3) MCFP methotrexate user: Code(s): Z79.899 - Other terminal make up operator (current) drug therapy Category: Medical Plan: #Long-term Current Use of Methotrexate Discussed with patient the benefits and risks of methotrexate for managing their rheumatic condition Benefits include reduced pain, reduced mortality, maintenance of remission and reduction of flares Risks include oral ulcers, photosensitivity, hepatotoxicity, hematologic toxicity, pneumonitis, flu-like symptoms (especially day after administration), nodulosis, lymphomas ? Limit alcohol and avoid Bactrim ? Monitoring: ?CBC, BMP, LFTs every 3-4 months and hepatitis serologies as needed (4) Long-term use of hydroxychloroquine: Code(s): Z79.899 - Other terminal make up operator (current) drug therapy Category: Medical Plan: #Long-term Use of Hydroxychloroquine Discussed with patient the risks and benefits of hydroxychloroquine in managing the rheumatic condition Benefits include: - Reduced pain, reduce mortality, maintenance of remission and reduction of f lemuel Risks include: - GI upset, skin hyperpigmentation, retinal toxicity (especially after more than 5 years of use), myopathy Advised yearly ophthalmology visits (5) Encounter for monitoring sulfasalazine therapy: Code(s): Z51.81 - Encounter for therapeutic drug level monitoring; Z79.899 - Other terminal make up operator (current) drug therapy Plan: #Long-term Use of Sulfasalazine Discussed with patient the risks and benefits of sulfasalazine in the management of the rheumatic condition Benefits include: - Reduced pain, reduce mortality, maintenance of remission then reduction of flares Risks include: - GI upset, hemolysis (especially if G6PD deficiency), eosinophilia, headache, dizziness, rash, elevated LFTs Plan I spent 35 minutes reviewing the record and labs, taking a history, examining the patient, discussing the treatment plan and documenting in the medical record Orders: Orders Comprehensive Met. Panel 4 Months M05.9 - Rheumatoid arthritis with rheumatoid factor, unspecified, M85.89 - Other specified disorders of bone density and structure, multiple sites C Reactive Protein 4 Months M05.9 - Rheumatoid arthritis with rheumatoid factor, unspecified, M85.89 - Other specified disorders of bone density and structure, multiple sites Erythrocyte Sedimentation Rate 4 Months M05.9 - Rheumatoid arthritis with rheumatoid factor, unspecified, M85.89 - Other specified disorders of bone density and structure, multiple sites Vitamin D 25-OH Total 4 Months M05.9 - Rheumatoid arthritis with rheumatoid factor, unspecified, M85.89 - Other specified disorders of bone density and structure, multiple sites US abdomen comp w elastography Today R10.9 - Unspecified abdominal pain, R74.01 - Elevation of levels of liver transaminase levels Complete Blood Count Auto Diff 4 Months M05.9 - Rheumatoid arthritis with rheumatoid factor, unspecified, M85.89 - Other specified disorders of bone density and structure, multiple sites Collagen Type I C-Telopeptide 4 Months M05.9 - Rheumatoid arthritis with rheumatoid factor, unspecified, M85.89 - Other specified disorders of bone density and structure, multiple sites Medications: New sulfasalazine give with food (meal/snack) 1,000 mg (2 x 500 mg) PO BID 360 tabs 1RF 90 days M05.9 - Rheumatoid arthritis with rheumatoid factor, unspecified Coding Level of Care Code Est Pt Level 4 (28651) Complex EM visit Add On G2211 Diagnoses Seropositive rheumatoid arthritis M05.9 Osteopenia of multiple sites M85.89 Osteopenia location: multiple sites terminal computer operator methotrexate user Long-term use of hydroxychloroquine Encounter for monitoring sulfasalazine therapy Z51.81; Z79.
[2025-03-30 10:27] VITALS: BP 120/62; PULSE 79; O2SAT 98; BMI 26.1
--- OUTSIDE RECORDS SUMMARY | 2025-03-30 11:25 | XMS_ITS | Clinical Summary ---
Author Organization [facility] Address [address] [place] [address] Care Team Providers Care Liquified Natural Gas Specialist Name Role Phone Tj Adorno MD Primary Care Provider [phone] Allergies No known active allergies Medications Medication [...] age to complete this topic Care Teams Liquified Natural Gas Specialist Relationship Specialty Start Date End Date Tj Adorno MD [address] [place] [address] [place] [id number] PCP - General Internal Medicine 09/12/17
== END 2025-03-30 11:21 | disposition home or self-care (01) ==
LOC: HO.RHE 10:18
PROVIDERS: PCP Internal Medicine; Visit Provider Student in an Organized Health Care Education/Training Program
DX: M05.79 Rheumatoid arthritis with rheumatoid factor of multiple sites without organ or systems involvement (principal); M85.89 Other specified disorders of bone density and structure, multiple sites; Z79.899 Other long term (current) drug therapy; Z51.81 Encounter for therapeutic drug level monitoring
CPT/HCPCS: 99214; G2211

== ENCOUNTER → 2025-03-30 10:18 | Outpatient (BNVA) | payer MEDICARE, OTHER, SELFPAY | PROVIDERS: PCP Internal Medicine; Visit Provider Student in an Organized Health Care Education/Training Program | DX: M05.79 Rheumatoid arthritis with rheumatoid factor of multiple sites without organ or systems involvement (principal); Z51.81 Encounter for therapeutic drug level monitoring; M05.9 Rheumatoid arthritis with rheumatoid factor, unspecified; M85.80 Other specified disorders of bone density and structure, unspecified site; E55.9 Vitamin D deficiency, unspecified; Z79.82 Long term (current) use of aspirin; Z79.52 Long term (current) use of systemic steroids; Z79.899 Other long term (current) drug therapy | CPT/HCPCS: 99212 ==